=== PATIENT | male | born 1940 | race Caucasian/White ===

== ENCOUNTER 2021-04-13 20:06 | Emergency (ER) | payer MEDICARE, SELFPAY ==
[2021-04-13 20:14] VITALS: BP 170/88; PULSE 102; RESP 24; TEMP 36.6; O2SAT 87
[2021-04-13] MEDS: IPRATROPIUM 0.5 MG/ALBUTEROL SULFATE 2.5 MG AMPUL.NEB 3 ML INHALATION (20:23)
[2021-04-13 20:26] VITALS: PULSE 104; RESP 18; O2SAT 99
[2021-04-13] MEDS: methylPREDNISolone SOD SUCC 125 MG VIAL IM (20:30)
--- NOTE | 2021-04-13 20:30 | ED.SOB ---
HPI - SOB/Dyspnea General Chief Complaint: Upper Respiratory Infection Stated Complaint: trouble breathing Time Seen by Provider: 04/13/21 20:30 Source: patient Mode of arrival: ambulatory Limitations: no limitations History of Present Illness HPI Narrative: Patient come in after locking himself out of his house. He has stated he has COPD, and has been short of breath because he cannot use his nebulizer, since he is locked out of his house. Shortness if breath has been mild, and he thinks he just needs his nebulizer, which he now has no access to. He has had no chest pain, no fever, no cough, no other symptoms. He states he just needs his nebulizer, since he has been smoking since sixth grade. Shortness of breath has developed gradually today, as he has been restricted from using his nebulizer. He has been in the car all day running the air conditioner, because he cannot get inside his home. He states he has been hot, and that is making him a little short of breath. Nothing much helped this, including the air conditioner in his car. No other signs, or symptoms noted. MD elicited complaint: shortness of breath Pertinent past history: COPD Onset (ago): hour(s) Context: other (outside home all day, not able to get in to use his nebulizer) Timing: constant Severity: moderate Exacerbating factors: movement and smoke Relieving factors: rest Known history of: COPD Associated symptoms: denies other symptoms Treatment prior to arrival: none Related Data Home Medications Medication Instructions Recorded Confirmed albuterol sulfate 90 mcg/actuation 1 puff INHALATION Q4H PRN 10/04/19 04/13/21 aerosol inhaler budesonide 0.5 mg/2 mL suspension 0.5 mg INHALATION BID ml 10/04/19 04/13/21 for nebulization aspirin [Aspirin Childrens] 81 mg PO DAILY 04/13/21 04/13/21 Allergies Allergy/AdvReac Type Severity Reaction Status Date / Time No Known Allergies Allergy Verified 02/13/21 14:36 Review of Systems Constitutional: Constitutional: Reports no additional constitutional complaints Eyes: Eyes: Reports no additional eye complaints ENT: Reports system reviewed and no additional complaints, except as documented Cardiovascular: Cardiovascular: Reports no additional cardiovascular complaints Respiratory: Respiratory: Reports no additional respiratory complaints Gastrointestinal: Gastrointestinal: Reports no additional gastrointestinal complaints Genitourinary: Genitourinary: Reports no additional male genitourinary complaints Musculoskeletal: Musculoskeletal: Reports no additional musculoskeletal complaints Integumentary/Breasts: Skin/Breast: Reports system reviewed and no additional complaints, except as docu Neurologic: Reports system reviewed and no additional complaints, except as documented Psychiatric: Psychiatric: Reports no additional psychiatric complaints Endocrine: Endocrine: Reports no additional endocrine complaints Hematologic/Lymphatic: Hematologic/Lymphatic: Reports no additional hematologic/lymphatic complaints Allergic/Immunologic: Allergic/Immunologic: Reports no additional allergic/immunologic complaints [facility] Past Medical History Medical History COPD with asthma Smoker Surgical History Surgical History (Updated 04/13/21 @ 21:37 by Jad Tavarez MD) No significant past surgical history Family History Family History (Updated 04/13/21 @ 20:33 by Jad Tavarez MD) Grandparent No problems noted. Other Family history non-contributory Social History Social History Smoking status: Current every day smoker Tobacco type: cigarettes Smoking end date: 09/29/05 Alcohol intake: never Exam Const: General: no acute distress and alert Orientation/consciousness: patient oriented x3 HENMT: Head: normal to inspection Ears: external ears normal General nose exam: Normal external nose present Mouth: Yes Normal or
[2021-04-13 20:31] VITALS: PULSE 95; RESP 18; O2SAT 100
--- NOTE | 2021-04-13 20:46 | PC.NURSE ---
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
[2021-04-13 20:51] VITALS: BP 170/68; PULSE 99; RESP 20; TEMP 36.3; O2SAT 95
== END 2021-04-13 20:54 | disposition home or self-care (01) ==
PROVIDERS: Emergency Provider Emergency Medicine
DX: J44.9 Chronic obstructive pulmonary disease, unspecified (principal); F17.200 Nicotine dependence, unspecified, uncomplicated
CPT/HCPCS: 94640; 96372; 99283; J2930

== ENCOUNTER 2021-08-29 16:10 | Inpatient (IN) | payer MEDICARE, SELFPAY ==
[2021-08-29] VITALS (8 sets, daily range): BP systolic 112–134; BP diastolic 72–109; PULSE 87–116; RESP 16–24; TEMP 36.2–36.7; O2SAT 94–100; BMI 16.7
--- NOTE | ~2021-08-29 | CT_ITS ---
EXAMINATION:CT diagnostic chest wo con DATE: 08/29/2021 18:39 INDICATION: Shortness of breath. TECHNIQUE: Computed tomography (CT) of the chest was performed without intravenous contrast. Automate d exposure control and iterative reconstruction technique were employed. The dose-length product (DLP ) was 153.48 mGy-cm. COMPARISON: Chest single view 08/29/2021 FINDINGS: There is severe emphysema. There is mild atelectasis bilaterally. There are airspace opacit ies in superior segment right lower lobe. There are airspace opacities with volume loss in peripheral left upper lobe. A calcified left lung nodule is consistent with old granulomatous disease. There ar e centrilobular nodules in superior segment left lower lobe. There are airspace and groundglass opaci ties in anterior segment left upper lobe. No pleural effusion. The heart size is normal. No pericardi al effusion. There are calcifications of aortic valve. No pericardial effusion. Calcifications in the spleen are consistent with old granulomatous disease. There is mild thoracic spondylosis. IMPRESSION: 1. Multifocal lung disease, likely infection. 2. Severe emphysema. Reviewed, dictated and finalized at location A. TELLER
--- NOTE | ~2021-08-29 | XR_ITS ---
EXAMINATION: XR chest 1V portable DATE: 08/29/2021 17:36 INDICATION: Cough. Dyspnea. TECHNIQUE: A single frontal view of the chest was obtained. COMPARISON: Chest 2 views 02/05/2018 FINDINGS: The lungs are hyperexpanded with lucencies, consistent with emphysema. There are airspace o pacities at left lung apex. A calcified left lung nodule is consistent with old granulomatous disease . No pleural effusion or pneumothorax. The heart size is normal. IMPRESSION: 1. New airspace opacities at left lung apex, consistent with pneumonia versus scarring versus maligna ncy. Chest CT without contrast is recommended. 2. Emphysema. Reviewed, dictated and finalized at location A. TION MECHANIC IMPRESSION: 1. New airspace opacities at left lung apex, consistent with pneumonia versus s carring versus malignancy. Chest CT without contrast is recommended. 2. Emphysema.
--- NOTE | 2021-08-29 16:48 | ED.SOB ---
HPI - SOB/Dyspnea General Chief Complaint: Shortness of Breath/Dyspnea Stated Complaint: trouble breathing Time Seen by Provider: 08/29/21 16:52 Source: patient Mode of arrival: ambulatory Limitations: no limitations History of Present Illness HPI Narrative: 80-year-old man who was a long history of smoking, COPD, and asthma comes in today complaining of shortness of breath and productive cough. Patient states he usually can get the sputum out of his chest without difficulty however for the last few days his breathing has gotten worse and he is unable to cough up any phlegm. He denies any hemoptysis, fever, chest pain, nausea, vomiting, diarrhea or sick contacts. He lives by himself. MD elicited complaint: shortness of breath and cough Pertinent past history: COPD and asthma Onset (ago): day(s) Timing: constant and progressively worsening Severity: moderate Exacerbating factors: exertion and coughing Relieving factors: nothing Known history of: COPD and asthma Associated symptoms: cough and sputum production Treatment prior to arrival: none Related Data Home oxygen amount: none Home Medications Medication Instructions Recorded Confirmed albuterol sulfate 90 mcg/actuation 1 puff INHALATION Q4H PRN 10/04/19 08/29/21 aerosol inhaler budesonide 0.5 mg/2 mL suspension 0.5 mg INHALATION BID ml 10/04/19 08/29/21 for nebulization aspirin [Aspirin Childrens] 81 mg PO DAILY 04/13/21 08/29/21 Allergies Allergy/AdvReac Type Severity Reaction Status Date / Time No Known Allergies Allergy Verified 02/13/21 14:36 Review of Systems Review of Systems: All systems reviewed & are unremarkable except as noted in HPI and below Constitutional: Constitutional: Denies chills, Reports fatigue, Denies fever(s) and Denies weakness Eyes: Eyes: Denies change in vision and Denies photophobia ENT: Denies nasal congestion and Denies sore throat Cardiovascular: Cardiovascular: Denies chest pain and Denies radiating jaw, neck or arm pain Comments: Dry mouth Respiratory: Respiratory: Reports chest congestion, Reports cough, Reports dyspnea and Reports wheezing Gastrointestinal: Gastrointestinal: Denies abdominal pain, Denies diarrhea, Denies nausea and Denies vomiting Genitourinary: Genitourinary: Denies hematuria, Denies dysuria and Denies urinary frequency Musculoskeletal: Musculoskeletal: Denies back pain, Denies arthralgias and Denies joint swelling Integumentary/Breasts: Skin/Breast: Denies pruritus, Denies erythema and Denies rash Neurologic: Denies vertigo, Denies dizziness, Denies syncope, Denies focal weakness and Denies weakness Hematologic/Lymphatic: Hematologic/Lymphatic: Denies easy bleeding and Denies easy bruising Allergic/Immunologic: Allergic/Immunologic: Denies lip swelling and Denies throat swelling PMF Past Medical History 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 Other Family history non-contributory Social History Social History Smoking status: Current every day smoker Tobacco type: cigarettes Smoking end date: 09/29/05 Alcohol intake: never Exam Const: General: no acute distress, alert and ill appearing chronically Nutritional Appearance: thin Orientation/consciousness: patient oriented x3 HENMT: Head: normal to inspection Ears: external ears normal, TM's normal bilaterally and EAC's normal Face and sinus: normal facial exam Mouth: Yes dry mucous membranes Throat: posterior oropharynx normal Eyes: Conjunctivae: conjunctivae normal Pupils: Equal, round and reactive pupils present EOM: EOMs intact bilaterally R
--- NOTE | 2021-08-29 17:01 | ECG_ITS ---
Measurements Intervals [place] Rate: 99 P: 88 ND: 141 QRS: 101 QRSD: 117 T: 83 QT: 343 QTc: 441 Interpretive Statements SINUS RHYTHM FREQUENT ATRIAL PREMATURE COMPLEXES INCOMPLETE RIGHT BUNDLE BRANCH BLOCK BORDERLINE T WAVE ABNORMALITY- HIGH LATERAL LEADS BASELINE ARTIFACT- I, II, AVR, AVL, AVF, V1-V4 ABNORMAL ECG Electronically Signed On 08-29-2021 20:19:44 ADMINISTRATIVE SECRETARY by Steven Bautista D.O.
[2021-08-29 17:23] LABS: Influenza A QL RT-PCR Negative (Negative); Influenza B QL RT-PCR Negative (Negative); SARS-CoV-2 RNA PCR Negative (Negative)
[2021-08-29 17:47] LABS: Base Excess ABG 1.4 mmol/L (0-2); HCO3 ABG 25.2 mmol/L (23-29); Oxygen Content ABG 16.8 %vol (16.0-22.0); Oxygen Saturation ABG 94.7 % (95-97); Oxyhemoglobin 88.9 % (94-100); PCO2 ABG 36.9 mmHg (35-45); PO2 ABG 72.6 mmHg (75-85); Total Hemoglobin 13.4 g/dL (12.0-18.0); pH ABG 7.45 (7.35-7.45)
[2021-08-29 17:49] LABS: Hematocrit 36.7 % (37.0-46.0); Mean Corpuscular HGB Conc 35.4 g/dL (32.0-36.0); Mean Corpuscular Hemoglobin 39.3 pg (27.0-31.0); Mean Corpuscular Volume 110.9 fL (78.0-102.0); Mean Platelet Volume 10.6 fl (8.7-11.0); Platelet Count Result 219 K/mm3 (150-420); Red Blood Count 3.31 M/mm3 (4.70-6.10); Red Cell Distribution Width 18.8 % (11.6-14.4)
[2021-08-29 17:52] LABS: Device ROOM AIR; Modified Allen's Test Pass; Site Drawn LEFT RADIAL
--- NOTE | 2021-08-29 17:54 | PC.NURSE ---
Lab called with WBC of 26,000. Dr. Mccartney notified.
[2021-08-29 18:10] LABS: Lactic Acid Reflex 1.7 mmol/L (0.4-2.0); White Blood Count 26.2 K/mm3 (4.8-10.8)
[2021-08-29 18:15] LABS: Alanine Aminotransferase 22 U/L (16-63); Albumin Level 3.3 g/dL (3.4-5.0); Alkaline Phosphatase 72 U/L (46-116); Anion Gap 5 mmol/L (8-16); Aspartate Amino Transferase 15 U/L (15-37); Blood Urea Nitrogen 27 mg/dL (7-18); Carbon Dioxide 31 mmol/L (21-32); Chloride 106 mmol/L (98-108); Estimated CRCL calculation 31 ml/min; Estimated Glomerular Filt Rate 52; Glucose 102 mg/dL (70-99); Magnesium 2.3 mg/dL (1.8-2.4); NT Pro B Type Natriuretic Pept 625 pg/mL (0-450); Osmolality Calculated 299 mOsm/kg (285-295); Sodium 142 mmol/L (136-145); Total Protein 6.9 g/dL (6.4-8.2)
[2021-08-29 18:45] LABS: Band Neutrophils Percent 0 % (0-6); Basophils Percent Manual 0 % (0-1); Eosinophils Percent Manual 0 % (1-6); Lymphocytes Absolute Manual 0.26 K/mm3 (1.1-4.5); Lymphocytes Percent Manual 1 % (18-44); Monocytes Absolute Manual 0.78 K/mm3 (0.1-0.90); Monocytes Percent Manual 3 % (3-9); Neutrophils Absolute Manual 25.15 K/mm3 (1.3-6.7); Neutrophils Percent Manual 96 % (46-73); Platelet Estimate Adequate (Adequate)
[2021-08-29] MEDS: IPRATROPIUM 0.5 MG/ALBUTEROL SULFATE 2.5 MG AMPUL.NEB 3 ML INHALATION (19:44)
[2021-08-29] MEDS: SODIUM CHLORIDE 0.9% IV 500 ML 999 ML IV CONT (19:47)
[2021-08-29 19:58] LABS: Add Urine Microscopic? YES; Appearance Urine Clear (Clear); Bilirubin Urine Negative (Negative); Blood Urine 2+ (Negative); Color Urine Yellow (Yellow); Glucose Urine UA Negative (Negative); Ketones Urine Negative (Negative); Leukocyte Esterase Ur Negative LEU/UL (Negative); Nitrate Urine Negative (Negative); Protein Urine Trace (Negative); Specific Grav Ur >= 1.030 (1.010-1.020); pH Urine 5.5 (5.0-8.0)
[2021-08-29] MEDS: methylPREDNISolone SOD SUCC 125 MG VIAL 80 MG IV PUSH (20:02)
[2021-08-29 20:03] LABS: Squamous Epithelial Cell Urine None seen /hpf (Few); WBC Urine 0-3 /hpf (0-3)
[2021-08-29 20:04] LABS: Bacteria Urine Trace /hpf; Mucus Urine Noted /lpf
[2021-08-29] MEDS: DEXTROSE 5%/0.9% SOD CHL 1,000 ML 100 ML IV CONT (21:23)
--- NOTE | 2021-08-29 22:52 | ADMGEN ---
This patient, Kyle Gonzalez, was admitted to 2nd Floor Room 204-2. Patient/family oriented to hospital policies and general routines including ID bracelet, bed and alarms, visiting hours, pain management, procedures, bathroom and other care routines, personal items, smoking policy, room service/diet, and visiting hours. pt has belongings in room, pants, shirt, socks, shoes, phone Information on how to activate the Rapid Response Team has been discussed. Patient/Family are encouraged to report perceived risks to care and to ask questions if they do not understand what they are told or what they should do.
[2021-08-30] VITALS (13 sets, daily range): BP systolic 116–121; BP diastolic 68–77; PULSE 67–94; RESP 20–26; TEMP 36.2–36.7; O2SAT 92–100
[2021-08-30 05:14] LABS: Basophils Absolute Auto 0.04 K/mm3 (0.00-0.10); Basophils Percent Auto 0.2 % (0.0-1.0); Hematocrit 36.3 % (37.0-46.0); Hemoglobin 12.2 g/dL (12.4-15.3); Immature Granulocyte Absolute 0.15 K/mm3 (0.00-0.00); Immature Granulocyte Percent A 0.8 % (0.0-0.0); Lymphocytes Absolute Auto 0.44 K/mm3 (1.10-4.50); Lymphocytes Percent Auto 2.3 % (18.0-42.0); Mean Corpuscular HGB Conc 33.6 g/dL (32.0-36.0); Mean Corpuscular Hemoglobin 38.9 pg (27.0-31.0); Mean Corpuscular Volume 115.6 fL (78.0-102.0); Mean Platelet Volume 10.9 fl (8.7-11.0); Monocytes Absolute Auto 0.22 K/mm3 (0.10-0.90); Monocytes Percent Auto 1.1 % (2.0-11.0); Neutrophils Absolute Auto 18.5 K/mm3 (1.7-7.2); Neutrophils Percent Auto 95.6 % (50.0-70.0); Platelet Count Result 221 K/mm3 (150-420); Red Blood Count 3.14 M/mm3 (4.70-6.10); Red Cell Distribution Width 18.9 % (11.6-14.4); White Blood Count 19.3 K/mm3 (4.8-10.8)
[2021-08-30 05:35] LABS: Alanine Aminotransferase 20 U/L (16-63); Albumin Level 2.8 g/dL (3.4-5.0); Alkaline Phosphatase 65 U/L (46-116); Anion Gap 7 mmol/L (8-16); Aspartate Amino Transferase 15 U/L (15-37); Bilirubin,Total 0.5 mg/dL (0.00-1.00); Blood Urea Nitrogen 23 mg/dL (7-18); Calcium 8.7 mg/dL (8.5-10.1); Carbon Dioxide 27 mmol/L (21-32); Chloride 106 mmol/L (98-108); Estimated CRCL calculation 34 ml/min; Estimated Glomerular Filt Rate > 60; Glucose 159 mg/dL (70-99); Osmolality Calculated 296 mOsm/kg (285-295); Potassium 4.3 mmol/L (3.5-5.1); Sodium 140 mmol/L (136-145); Total Protein 6.4 g/dL (6.4-8.2)
[2021-08-30] MEDS: IPRATROPIUM 0.5 MG/ALBUTEROL SULFATE 2.5 MG AMPUL.NEB 3 ML INHALATION ×3 (05:35→18:19)
[2021-08-30] MEDS: BUDESONIDE RESPULE NEB 0.5 MG/2 ML AMP INHALATION ×2 (05:51→18:26)
[2021-08-30] MEDS: IPRATROPIUM 0.5 MG/ALBUTEROL SULFATE 2.5 MG AMPUL.NEB 3 ML (05:51)
[2021-08-30] MEDS: DEXTROSE 5%/0.9% SOD CHL 1,000 ML 100 ML IV CONT (07:43)
[2021-08-30] MEDS: methylPREDNISolone SOD SUCC 40 MG VIAL IV PUSH ×2 (08:45→21:27)
[2021-08-30] MEDS: ASPIRIN 81 MG CHEWABLE TABLET PO (08:45)
[2021-08-30] MEDS: NICOTINE (*PBKC) 21 MG PATCH 1 PATCH TRANSDERM (08:45)
--- NOTE | 2021-08-30 10:16 | PM.IMHP ---
H&P: HPI History of Present Illness Date/Time: 08/30/21 10:16 this is a 80-year-old male who presented to care with complaints of increased shortness. Patient past medical history of COPD, asthma, nicotine dependence, CVA with residual and glaucoma. Patient notes that he has chronic shortness of breath and he is currently a smoker he smokes cigars. Patient notes for the last week his shortness of breath has worsened he is coughing up yellowish sputum. According to patient every morning he has to smoke a cigar to make him choke the sputum in his chest and throat. Patient does have a nebulizer at home he notes that he has been using his nebulizer and he does have solution for his nebulizer. Patient does not have any inhalers will discharge patient home with inhalers. He is refusing oxygen because he currently smokes he knows he cannot walk to his mailbox due to shortness of breath. Will complete a home O2 eval and give the patient option of oxygen use once again. Patient chest x-ray and CT did indicate possible pneumonia, WBCs 26.2, hemoglobin 13.0, hematocrit 36.7, platelets 219 ABG no significant reporting, sodium 142, potassium 5.0, BUN 27, creatinine 1.02, glucose 59, lactic acid 1.7 liver function test within normal limit BNP 625 UA with trace of protein and bacteria and RBCs Covid negative EKG sinus rhythm with a heart rate of 99. Patient will remain in hospital for an additional day for treatment of pneumonia with antibiotics with inhalers and nebulizer treatment. Patient continues to complain of worsening shortness of breath with sputum production Chief Complaint: Shortness of breath Review of Systems Review of Systems: A 14 organ system Review of Systems was performed and pertinent positives included in the HPI, otherwise remaining ROS is negative. 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 Other Family history non-contributory Social History Social History Smoking status: Current every day smoker Tobacco type: cigars Second hand tobacco smoke exposure: Yes Smoking end date: 09/29/05 Alcohol intake: never Substance use: former Substance use type: does not use Spiritual care concerns: No Meds Home Medications and Allergies Home Medications Medication Instructions Recorded Confirmed Type albuterol sulfate 90 mcg/actuation 1 puff INHALATION Q4H PRN 10/04/19 08/29/21 History aerosol inhaler budesonide 0.5 mg/2 mL suspension 0.5 mg INHALATION BID ml 10/04/19 08/29/21 History for nebulization aspirin [Aspirin Childrens] 81 mg PO DAILY 04/13/21 08/29/21 History Allergies Allergy/AdvReac Type Severity Reaction Status Date / Time No Known Allergies Allergy Verified 02/13/21 14:36 Vital Signs Vital Signs - 24 hr 08/29/21 17:02 08/29/21 17:12 08/29/21 19:46 Temperature 98.1 F Pulse Rate 107 H 100 116 H Respiratory Rate 22 H 24 H Blood Pressure 134/78 Pulse Oximetry 99 95 08/29/21 19:49 08/29/21 22:06 08/29/21 22:48 Temperature 97.3 F L Pulse Rate 94 97 87 Respiratory Rate 23 H 17 22 H Blood Pressure 129/109 H 122/86 Pulse Oximetry 100 96 95 08/29/21 23:55 08/29/21 23:57 08/30/21 03:03 Temperature 97.2 F L 97.2 F L Pulse Rate 88 87 94 Respiratory Rate 16 26 H Blood Pressure 112/72 116/77 Pulse Oximetry 94 94 08/30/21 05:53 08/30/21 06:00 08/30/21 06:01 Temperature Pulse Rate 84 67 67 Respiratory Rate 22 H 20 20 Blood Pressure Pulse Oximetry 92 98 98 08/30/21 06:15 08/30/21 08:00 Temperature 97.1 F L Pulse Rate 76 85 Respiratory Rat
[2021-08-30] MEDS: BENZONATATE 100 MG CAPSULE 200 MG PO ×2 (12:10→16:59)
[2021-08-30] MEDS: ALBUTEROL SULFATE (*SP) INHALER 2 PUFF INHALATION (12:57)
[2021-08-30] MEDS: ACETAMINOPHEN 325 MG TABLET 650 MG PO (14:10)
--- NOTE | 2021-08-30 19:00 | PC.NURSE ---
Completed change of shift report. Patient is resting comfortably in his recliner. Patient ready to move to his bed. Patient stated he was not in any pain, and did not need anything at this point.
--- NOTE | 2021-08-30 22:00 | PC.NURSE ---
Completed patient rounding. Patient is sitting on the side of his bed. Stated he is short of breath, and sitting upright on the side of the bed is helping him breath. Patient began to feel better, and was able to return to his bed, resting comfortably.
[2021-08-31] VITALS (18 sets, daily range): BP systolic 116–138; BP diastolic 71–84; PULSE 64–97; RESP 16–21; TEMP 36.3–36.6; O2SAT 84–100
[2021-08-31] MEDS: IPRATROPIUM 0.5 MG/ALBUTEROL SULFATE 2.5 MG AMPUL.NEB 3 ML INHALATION ×4 (00:31→18:38)
--- NOTE | 2021-08-31 02:00 | PC.NURSE ---
Completed patient rounding. Patient is sleeping comfortably in his bed, with no signs of pain or discomfort.
[2021-08-31 05:30] LABS: Hematocrit 32.4 % (37.0-46.0); Mean Corpuscular Hemoglobin 38.6 pg (27.0-31.0); Mean Corpuscular Volume 113.7 fL (78.0-102.0); Mean Platelet Volume 10.2 fl (8.7-11.0); Platelet Count Result 219 K/mm3 (150-420); Red Blood Count 2.85 M/mm3 (4.70-6.10); Red Cell Distribution Width 18.5 % (11.6-14.4)
[2021-08-31] MEDS: BUDESONIDE RESPULE NEB 0.5 MG/2 ML AMP INHALATION ×2 (05:37→18:39)
[2021-08-31 05:55] LABS: Alanine Aminotransferase 30 U/L (16-63); Albumin Level 2.7 g/dL (3.4-5.0); Alkaline Phosphatase 62 U/L (46-116); Anion Gap 10 mmol/L (8-16); Aspartate Amino Transferase 25 U/L (15-37); Bilirubin,Total 0.4 mg/dL (0.00-1.00); Blood Urea Nitrogen 30 mg/dL (7-18); Calcium 8.3 mg/dL (8.5-10.1); Carbon Dioxide 26 mmol/L (21-32); Chloride 106 mmol/L (98-108); Estimated CRCL calculation 36 ml/min; Estimated Glomerular Filt Rate > 60; Glucose 122 mg/dL (70-99); Osmolality Calculated 301 mOsm/kg (285-295); Potassium 4.4 mmol/L (3.5-5.1); Sodium 142 mmol/L (136-145); Total Protein 5.5 g/dL (6.4-8.2)
[2021-08-31] MEDS: BENZONATATE 100 MG CAPSULE 200 MG PO ×3 (08:45→16:30)
[2021-08-31] MEDS: methylPREDNISolone SOD SUCC 40 MG VIAL IV PUSH ×2 (08:45→20:39)
[2021-08-31] MEDS: ASPIRIN 81 MG CHEWABLE TABLET PO (08:45)
[2021-08-31] MEDS: NICOTINE (*PBKC) 21 MG PATCH 1 PATCH TRANSDERM (08:46)
--- NOTE | 2021-08-31 11:07 | HOMEO2EVAL ---
Evaluation was performed at [facility] Home Oxygen Evaluation RC: Home Oxygen (O2) Evaluation Start: 08/31/21 10:16 Freq: ONCE Status: Active Protocol: RPE Activity Type Activity Date Activity User E-Sign Co-Sign Detail Recorded Client Recorded Date Recorded By Document 08/31/21 10:45 SJB [id number] 08/31/21 11:06 SJB Document 08/31/21 10:46 SJB [id number] 08/31/21 11:06 SJB Document 08/31/21 10:51 SJB [id number] 08/31/21 11:06 SJB Document 08/31/21 10:56 SJB [id number] 08/31/21 11:06 SJB 08/31/21 08/31/21 08/31/21 10:45 10:46 10:51 Home O2 Evaluation Test Phase Resting Exercise Exercise Oxygen Delivery Room Air Room Air Nasal Cannula Oxygen Flow Rate (L/min) 1 Pulse Oximetry (90-100 %) 94 84 L 87 L Pulse Rate (60-100 beats/min) 92 84 76 Activity Tolerance Fair Fair Rate of Perceived Exertion (PE) 12 13 Somewhat Hard Ambulation Distance (feet) 30 75 Home Oxygen Evaluation Comments SOB and Started patient Increased wheezing on on 1 lpm. oxygen to 2 lpm room air, . sitting on side of bed. Treatment Charges O2 Evaluation - Outpatient 08/31/21 10:56 Home O2 Evaluation Test Phase Exercise Oxygen Delivery Nasal Cannula Oxygen Flow Rate (L/min) 2 Pulse Oximetry (90-100 %) 93 Pulse Rate (60-100 beats/min) 97 Activity Tolerance Fair Rate of Perceived Exertion (PE) 13 Somewhat Hard Ambulation Distance (feet) 75 Home Oxygen Evaluation Comments Finsihed walk on 2 lpm, pushing wheelchair, Sp02s remained 93% and above. Educated on PLB . Treatment Charges
--- NOTE | 2021-08-31 11:30 | PC.NURSE ---
Patient discharged from observation status to inpatient status.
--- NOTE | 2021-08-31 12:39 | P.PN_ITS ---
Progress Note: A&P Assessment and Plan (1) Asthma exacerbation in COPD: Code(s): J44.1 - Chronic obstructive pulmonary disease with (acute) exacerbation; J45.901 - Unspecified asthma with (acute) exacerbation <AMOL Guaman - Last Filed: 08/31/21 12:42> Status: Acute <Chijarred RoqueLACHELLE OrnelasC - Last Filed: 08/31/21 12:42> Assessment and Plan: * Chest x-ray indicates severe emphysema * Worsening due to pneumonia * Continue inhalers along with steroids and Rocephin * Patient requires 2 L nasal cannula with activity <CHENTE Guaman-C - Last Filed: 08/31/21 12:42> (2) Left upper lobe pneumonia: Qualifiers: Pneumonia type: due to unspecified organism Qualified Code(s): J18.9 - Pneumonia, unspecified organism <AMOL Guaman - Last Filed: 08/31/21 12:42> Code(s): J18.9 - Pneumonia, unspecified organism <LACHELLE GuamanC - Last Filed: 08/31/21 12:42> Status: Acute <AMOL Guaman - Last Filed: 08/31/21 12:42> Assessment and Plan: * Chest x-ray indicates pneumonia * WBCs26.2>19.3>18.0 * Blood culture * Continue Rocephin and azithromycin * Continue Tessalon Perles with guaifenesin and inhalers with Solu-Medrol <AMOL Guaman - Last Filed: 08/31/21 12:42> (3) Acute renal failure: Qualifiers: Acute renal failure type: unspecified Qualified Code(s): N17.9 - Acute kidney failure, unspecified <AMOL Guaman - Last Filed: 08/31/21 12:42> Code(s): N17.9 - Acute kidney failure, unspecified <LACHELLE GuamanC - Last Filed: 08/31/21 12:42> Status: Acute <AMOL Guaman - Last Filed: 08/31/21 12:42> Assessment and Plan: * Resolved * Creatinine1.32>1.05>wnl * Avoid nephrotoxic agent * Renal dose medication given <AMOL Guaman - Last Filed: 08/31/21 12:42> (4) History of CVA with residual deficit: Code(s): I69.30 - Unspecified sequelae of cerebral infarction <Graeme Shay AMOL - Last Filed: 08/31/21 12:42> Status: Acute <AMOL Guaman - Last Filed: 08/31/21 12:42> Assessment and Plan: * Follow-up with primary care physician <AMOL Guaman - Last Filed: 08/31/21 12:42> (5) Smoker: Code(s): F17.200 - Nicotine dependence, unspecified, uncomplicated <Graeme Shay AMOL - Last Filed: 08/31/21 12:42> Status: Acute <AMOL Guaman - Last Filed: 08/31/21 12:42> Assessment and Plan: * Educated on cessation * Nicotine patch placed <AMOL Guaman - Last Filed: 08/31/21 12:42> Additional Plan 80-year-old male, smoker with a history of COPD presented with left upper lobe pneumonia and COPD exasperation. On physical examination the but patient continues to have severe bronchospasm. Continue Solu-Medrol, bronchodilators along with Rocephin and Zithromax. <Alexis Jo MD - Last Filed: 08/31/21 14:48> Subjective Date/time seen: 08/31/21 12:39 patient WBCs trending down he still continues to have shortness of breath mucus production. Plan to keep patient for an additional day of IV antibiotic therapy due to his noncompliance. Home O2 evaluation complete outpatient with determined that he needs 2 L with activities. Patient educated on smoking cessation in the dangers of using oxygen while smoking patient has agreed to attempt smoking cessation. Only complaint patient has is he was unable to sleep last night due to nursing staff coming in taking vitals I explained to the patient t
--- NOTE | 2021-08-31 12:39 | WPDPN ---
Progress Note: A&P Assessment and Plan (1) Asthma exacerbation in COPD: Code(s): J44.1 - Chronic obstructive pulmonary disease with (acute) exacerbation; J45.901 - Unspecified asthma with (acute) exacerbation <Graeme RoqueAMOL Ornelas - Last Filed: 08/31/21 12:42> Status: Acute <Chijarred RoqueLACHELLE OrnelasC - Last Filed: 08/31/21 12:42> Assessment and Plan: Chest x-ray indicates severe emphysema Worsening due to pneumonia Continue inhalers along with steroids and Rocephin Patient requires 2 L nasal cannula with activity <ChiCHENTE Flores-C - Last Filed: 08/31/21 12:42> (2) Left upper lobe pneumonia: Qualifiers: Pneumonia type: due to unspecified organism Qualified Code(s): J18.9 - Pneumonia, unspecified organism <LACHELLE GuamanC - Last Filed: 08/31/21 12:42> Code(s): J18.9 - Pneumonia, unspecified organism <LACHELLE GuamanC - Last Filed: 08/31/21 12:42> Status: Acute <Graeme RoqueLACHELLE OrnelasC - Last Filed: 08/31/21 12:42> Assessment and Plan: Chest x-ray indicates pneumonia WBCs26.2>19.3>18.0 Blood culture Continue Rocephin and azithromycin Continue Tessalon Perles with guaifenesin and inhalers with Solu-Medrol <AMOL Guaman - Last Filed: 08/31/21 12:42> (3) Acute renal failure: Qualifiers: Acute renal failure type: unspecified Qualified Code(s): N17.9 - Acute kidney failure, unspecified <CHENTE Guaman-C - Last Filed: 08/31/21 12:42> Code(s): N17.9 - Acute kidney failure, unspecified <CHENTE Guaman-C - Last Filed: 08/31/21 12:42> Status: Acute <AMOL Guaman - Last Filed: 08/31/21 12:42> Assessment and Plan: Resolved Creatinine1.32>1.05>wnl Avoid nephrotoxic agent Renal dose medication given <Graeme NevarezAMOL Ornelas - Last Filed: 08/31/21 12:42> (4) History of CVA with residual deficit: Code(s): I69.30 - Unspecified sequelae of cerebral infarction <Graeme NevarezAMOL Ornelas - Last Filed: 08/31/21 12:42> Status: Acute <Graeme ShayAMOL - Last Filed: 08/31/21 12:42> Assessment and Plan: Follow-up with primary care physician <Graeme NevarezAMOL Ornelas - Last Filed: 08/31/21 12:42> (5) Smoker: Code(s): F17.200 - Nicotine dependence, unspecified, uncomplicated <Graeme Valencia CHENTE ShayKristalRickey - Last Filed: 08/31/21 12:42> Status: Acute <Graeme NevarezAMOL Ornelas - Last Filed: 08/31/21 12:42> Assessment and Plan: Educated on cessation Nicotine patch placed <Graeme NevarezAMOL Ornelas - Last Filed: 08/31/21 12:42> Additional Plan 80-year-old male, smoker with a history of COPD presented with left upper lobe pneumonia and COPD exasperation. On physical examination the but patient continues to have severe bronchospasm. Continue Solu-Medrol, bronchodilators along with Rocephin and Zithromax. <Alexis Jo MD - Last Filed: 08/31/21 14:48> Subjective Date/time seen: 08/31/21 12:39 patient WBCs trending down he still continues to have shortness of breath mucus production. Plan to keep patient for an additional day of IV antibiotic therapy due to his noncompliance. Home O2 evaluation complete outpatient with determined that he needs 2 L with activities. Patient educated on smoking cessation in the dangers of using oxygen while smoking patient has agreed to attempt smoking cessation. Only complaint patient has is he was unable to sleep last night due to nursing staff coming in taking vitals I explained to the patient that they have to monitor him to ensure they his mental status is stable. Plan to discharge patient tomorrow. <AMOL Guaman - Last Filed: 08/31/21 12:42> Review of Systems Review of Systems: A 14 organ system Review of Systems was performed and pertinent positives included in the HPI, otherwise remaining ROS is
--- NOTE | 2021-08-31 19:13 | PC.NURSE ---
Pt introduction took place. Pt whiteboard updated. Call light within reach.
[2021-09-01] MEDS: IPRATROPIUM 0.5 MG/ALBUTEROL SULFATE 2.5 MG AMPUL.NEB 3 ML INHALATION (00:54)
[2021-09-01 00:55] VITALS: PULSE 96; RESP 22; O2SAT 94
[2021-09-01 00:58] VITALS: PULSE 85; RESP 20; O2SAT 94
--- NOTE | 2021-09-01 02:10 | PC.NURSE ---
Pt rounding completed. Pt is sleeping on his right side with the call light within reach.
[2021-09-01 05:22] LABS: Hematocrit 31.3 % (37.0-46.0); Hemoglobin 10.7 g/dL (12.4-15.3); Mean Corpuscular HGB Conc 34.2 g/dL (32.0-36.0); Mean Corpuscular Hemoglobin 38.9 pg (27.0-31.0); Mean Corpuscular Volume 113.8 fL (78.0-102.0); Mean Platelet Volume 10.2 fl (8.7-11.0); Platelet Count Result 245 K/mm3 (150-420); Red Blood Count 2.75 M/mm3 (4.70-6.10); Red Cell Distribution Width 18.1 % (11.6-14.4); White Blood Count 18.4 K/mm3 (4.8-10.8)
[2021-09-01 05:38] LABS: Alanine Aminotransferase 74 U/L (16-63); Albumin Level 2.7 g/dL (3.4-5.0); Alkaline Phosphatase 63 U/L (46-116); Anion Gap 8 mmol/L (8-16); Aspartate Amino Transferase 48 U/L (15-37); Bilirubin,Total 0.4 mg/dL (0.00-1.00); Blood Urea Nitrogen 25 mg/dL (7-18); Calcium 8.5 mg/dL (8.5-10.1); Carbon Dioxide 27 mmol/L (21-32); Chloride 107 mmol/L (98-108); Estimated CRCL calculation 35 ml/min; Estimated Glomerular Filt Rate > 60; Glucose 112 mg/dL (70-99); Osmolality Calculated 299 mOsm/kg (285-295); Potassium 4.7 mmol/L (3.5-5.1); Sodium 142 mmol/L (136-145); Total Protein 5.8 g/dL (6.4-8.2)
--- NOTE | 2021-09-01 07:59 | PM.DS ---
DS: Admitting Diagnosis Discharge Date 09/01/2021 Admitting Diagnosis COPD exacerbation DS: Discharge Diagnosis Discharge Diagnosis (1) Asthma exacerbation in COPD: Code(s): J44.1 - Chronic obstructive pulmonary disease with (acute) exacerbation; J45.901 - Unspecified asthma with (acute) exacerbation Status: Acute Assessment and Plan: Chest x-ray indicates severe emphysema Worsening due to pneumonia Continue inhalers along with steroids and Rocephin Patient requires 2 L nasal cannula with activity (2) Left upper lobe pneumonia: Qualifiers: Pneumonia type: due to unspecified organism Qualified Code(s): J18.9 - Pneumonia, unspecified organism Code(s): J18.9 - Pneumonia, unspecified organism Status: Acute Assessment and Plan: Chest x-ray indicates pneumonia WBCs26.2>19.3>18.0 patient WBCs remain elevated possibly secondary to steroid Blood culture Continue Rocephin and azithromycin Continue Tessalon Perles with guaifenesin and inhalers with Solu-Medrol (3) Acute renal failure: Qualifiers: Acute renal failure type: unspecified Qualified Code(s): N17.9 - Acute kidney failure, unspecified Code(s): N17.9 - Acute kidney failure, unspecified Status: Acute Assessment and Plan: Resolved Creatinine1.32>1.05>wnl Avoid nephrotoxic agent Renal dose medication given (4) History of CVA with residual deficit: Code(s): I69.30 - Unspecified sequelae of cerebral infarction Status: Acute Assessment and Plan: Follow-up with primary care physician (5) Smoker: Code(s): F17.200 - Nicotine dependence, unspecified, uncomplicated Status: Acute Assessment and Plan: Educated on cessation Nicotine patch placed DS: Summary Hospital Course Reason for hospitalization: COPD exacerbation Hospital Course: this is a 80-year-old male who presented to ED with complaints of increased shortness. Patient past medical history of COPD, asthma, nicotine dependence, CVA with residual and glaucoma. Patient notes that he has chronic shortness of breath and he is currently a smoker he smokes cigars. Patient notes for the last week his shortness of breath has worsened he is coughing up yellowish sputum. According to patient every morning he has to smoke a cigar to make him choke the sputum in his chest and throat. Patient does have a nebulizer at home he notes that he has been using his nebulizer and he does have solution for his nebulizer. Patient does not have any inhalers will discharge patient home with inhalers. Home to evaluation indicates the patient needs 2 L nasal cannula with activity. Patient has been educated on the importance of not using oxygen while smoking. Patient was discharged with nicotine patch, steroids, azithromycin, cefdinir, guaifenesin, Tessalon Perles and inhalers. The patient denies CP, palpitation, extremity numbness, lightheadedness, dizziness, constipation, diarrhea, chills, or fever. Time Spent with Patient Time attestation: Total time spent providing and/or coordinating discharge services: Exam Narrative: GENERAL: Frail elderly gentleman in no apparent distress. HEAD: normocephalic, atraumatic. EYES: PERRL. Sclera clear/white. Vision is grossly intact. EARS: External ears normal, auditory canals clear and without drainage, TMs normal without perforation. Hearing grossly intact. NOSE: External nose normal with no obvious nasal discharge, nares without redness, no rhinorrhea. THROAT: Mucous membranes moist, posterior pharynx clear. NECK: Neck supple, non-tender without lymphadenopathy, masses or thyromegaly. CARDIOVASCULAR: Regular rate and rhythm without murmurs, gallops, or rubs. RESPIRATORY: Wheezing with exhalation and inhalation throughout the lungs GASTROINTESTINAL: Abdomen soft, non-tender, nondistended. Bowel sounds are active. No hepato-splenomegaly, or palpable masses. No guarding. SKIN: warm,
[2021-09-01 08:00] VITALS: BP 101/70; PULSE 97; RESP 20; TEMP 36.4; O2SAT 100
[2021-09-01] MEDS: methylPREDNISolone SOD SUCC 40 MG VIAL IV PUSH (09:22)
[2021-09-01] MEDS: ASPIRIN 81 MG CHEWABLE TABLET PO (09:24)
[2021-09-01] MEDS: BENZONATATE 100 MG CAPSULE 200 MG PO (09:24)
[2021-09-01] MEDS: NICOTINE (*PBKC) 21 MG PATCH 1 PATCH TRANSDERM (09:33)
--- NOTE | 2021-09-01 11:55 | PC.NURSE ---
Patients friend Zeeshan manzano called per pt. request to see if Zeeshan could give pt. a ride home. Zeeshan states he can be here at 1245.
--- NOTE | 2021-09-01 12:29 | PC.NURSE ---
Attempted to review discharge instructions with patient. He began screaming about [employer] calling him and his ride calling. Several attempts were made to calm the patient, but he began screaming louder. WIRE MESH KNITTER and charge nurse were notified of patients actions. Attempts will be made to review discharge instructions with person giving pt the ride.
--- NOTE | 2021-09-01 13:20 | PC.NURSE ---
Discharge instructions reviewed with patients family member(Zeeshan) that is transporting him home. Family member states understanding. All belongings sent home with patient. Patient accompanied to front door via wheelchair by this nurse. Patient left via private vehicle with family member.
--- NOTE | 2021-09-04 11:05 | PC.NURSE ---
Pt states he received his discharge instructions but he doesn't understand them. Discharge instructions explained by health science writer. Pt states he hasn't picked up prescriptions and is refusing to use home O2 and is having the company pick it up today.
== END 2021-09-01 13:20 | disposition home or self-care (01) | DRG 190 ==
LOC: CHSED 19:35 → CHS2ND 21:43
PROVIDERS: Nurse Practitioner; Admitting Provider Emergency Medicine; Emergency Provider Emergency Medicine; PCP Internal Medicine; Visit Provider Emergency Medicine
DX: J44.1 Chronic obstructive pulmonary disease with (acute) exacerbation (principal); J18.9 Pneumonia, unspecified organism; J45.901 Unspecified asthma with (acute) exacerbation; N17.9 Acute kidney failure, unspecified; J44.0 Chronic obstructive pulmonary disease with (acute) lower respiratory infection; I69.30 Unspecified sequelae of cerebral infarction; F17.290 Nicotine dependence, other tobacco product, uncomplicated
CPT/HCPCS: 36415; 36600; 71045; 71250; 80053; 81001; 82805; 83605; 83735; 83880; 84484; 85025; 85027; 87040; 87502; 93005; 94618; 94640; 96361; 96365; 96366; 96367; 96375; 96376; 97161; 97530; 99285; A9270; C9803; G0378; J0456; J0696; J2920; J2930; J7040; J7042; U0003; U0005

== ENCOUNTER 2022-02-21 15:58 | Emergency (ER) | payer MEDICARE, SELFPAY ==
--- NOTE | ~2022-02-21 | CT_ITS ---
EXAMINATION: CT brain wo con DATE: 02/21/2022 16:59 INDICATION: Dizziness and generalized head and neck pain post ground-level fall TECHNIQUE: Computed tomography (CT) of the head was performed without intravenous contrast. Sagittal and coronal reconstructions were performed. Automated exposure control and iterative reconstruction t echnique were employed. The dose-length product was 605.33 mGy-cm. COMPARISON: head CT dated 04/11/2011 FINDINGS: No fracture. No acute intracranial hemorrhage, acute infarction or abnormal extra axial fluid collect ion. Old lacunar infarct at the left thalamus. There is moderate scattered white matter hypoattenuati on consistent with chronic small vessel ischemic disease. Symmetric prominence of the sulci and ventr icles consistent with moderate age-appropriate diffuse cerebral volume loss. No mass/mass effect. Cami nges of bilateral intraocular lens replacement. The orbits, paranasal sinuses and mastoid air cells a re normal. IMPRESSION: 1. No fracture or acute intracranial process. 2. Stable lacunar infarct at the right thalamus. 3. Age-related changes including moderate diffuse volume loss and moderate scattered white matter hyp oattenuation consistent with chronic small vessel ischemic disease. Reviewed, dictated and finalized at location B. IMPRESSION: 1. No fracture or acute intracranial process. 2. Stable lacunar infarct at the right thalamus. 3. Age-related changes including moderate diffuse volume loss and moderate scat tered white matter hypoattenuation consistent with chronic small vessel ischemi c disease.
--- NOTE | ~2022-02-21 | XR_ITS ---
XR humerus LT 02/21/2022 17:32 Indication: Left arm pain Procedure: 2 views left humerus Comparison: No prior studies for comparison. Findings: No fracture, subluxation or dislocation. There is chronic left apical pleural thickening/sc arring. There is a chronic calcified granulomas of the left upper thorax. Impression: 1: No acute fracture. Reviewed, dictated and finalized at location A. Impression: 1: No acute fracture.
--- NOTE | ~2022-02-21 | CT_ITS ---
EXAMINATION: CT lumbar spine wo con DATE: 02/21/2022 16:59 INDICATION: Low back pain post fall TECHNIQUE: Computed tomography (CT) of the lumbar spine was performed without intravenous contrast. A utomated exposure control and iterative reconstruction technique were employed. The dose-length produ ct was 481.82 mGy-cm. COMPARISON: None FINDINGS: Marked diffuse osteopenia. Chronic appearing mild anterior wedging at T12 and L1 with 20% anterior ve rtebral body height loss. Additional chronic compression fracture involving the anterior to mid super ior endplate of L4 with one third anterior to central vertebral body height loss. No acute fractures identified. Severe disc height loss at L5-S1. Remaining disc heights are relatively preserved. There is calcified atherosclerosis of the aorta and many of the other arteries. 3.5 cm cyst at the lower po le of the left kidney. Paravertebral soft tissues are otherwise unremarkable. The following disc leve ls are specifically discussed: T12-L1: The disc does not extend beyond the endplate margin. There is mild right and moderate left fa cet joint osteoarthritis. There is no neural foraminal stenosis. There is no central canal stenosis. L1-L2: Disc is mildly bulging. There is moderate bilateral facet joint osteoarthritis. There is mild bilateral neural foraminal stenosis. There is mild central canal stenosis. L2-L3: Disc is mildly bulging. There is moderate left and mild to moderate right facet joint osteoart hritis. There is mild bilateral neural foraminal stenosis. There is mild central canal stenosis. L3-L4: Disc is bulging. There is mild left and moderate right facet joint osteoarthritis. There is mi ld bilateral neural foraminal stenosis. There is mild central canal stenosis. L4-L5: Disc is bulging. There is moderate bilateral facet joint osteoarthritis. There is moderate lef t and mild to moderate right neural foraminal stenosis. There is mild central canal stenosis. L5-S1: Posterior disc osteophyte complex. There is moderate bilateral facet joint osteoarthritis. The re is moderate to severe bilateral neural foraminal stenosis. There is no central canal stenosis. IMPRESSION: 1. Chronic compression fractures at T12, L1 and L4. No evident acute osseous abnormality. 2. Severe lumbosacral and mild lumbar spondylosis. Reviewed, dictated and finalized at location B. IMPRESSION: 1. Chronic compression fractures at T12, L1 and L4. No evident acute osseous ab normality. 2. Severe lumbosacral and mild lumbar spondylosis.
[2022-02-21 16:11] VITALS: BP 150/94; PULSE 93; RESP 14; TEMP 36.6; O2SAT 98
[2022-02-21 16:30] VITALS: BP 154/92; PULSE 96; RESP 14; O2SAT 98
--- NOTE | 2022-02-21 16:38 | ECG_ITS ---
Measurements Intervals [place] Rate: 99 P: 92 GA: 140 QRS: 91 QRSD: 125 T: 74 QT: 355 QTc: 457 Interpretive Statements SINUS RHYTHM POSSIBLE RIGHT ATRIAL ENLARGEMENT RIGHT BUNDLE BRANCH BLOCK BASELINE ARTIFACT- I, AVR, AVL ABNORMAL ECG Electronically Signed On 02-21-2022 20:37:30 CDT by Steven Bautista D.O.
--- NOTE | 2022-02-21 17:18 | ED.FALL ---
HPI - Fall General Chief Complaint: Fall <Bryan Rodas MD - Last Filed: 02/21/22 20:20> Stated Complaint: back pain post fall, lac on bicep <Bryan Rodas MD - Last Filed: 02/21/22 20:20> Time Seen by Provider: 02/21/22 16:02 <Bryan Rodas MD - Last Filed: 02/21/22 20:20> History of Present Illness HPI Narrative: Patient is an 81-year-old male complaining of laceration of his left arm, mild head pain and lower back pain after he lost his balance due to feeling dizzy at home and had a ground-level fall prior to arrival. Patient states that he has a history of vertigo, and while walking with his cane he suddenly turned and felt dizzy and fell to the ground. Patient denies any loss of consciousness. Patient states that he was able to get up and ambulate after the fall. Patient denies any neck pain, chest pain, shortness of breath, abdominal pain, pelvic pain or any other extremity pain/injury. Patient states that he did not want to go to the hospital but his son made him. <Bryan Rodas MD - Last Filed: 02/21/22 20:20> Related Data Home Medications: Home Medications Medication Instructions Recorded Confirmed aspirin 81 mg chewable tablet 81 mg PO DAILY 04/13/21 08/29/21 (Aspirin Childrens) <Bryan Rodas MD - Last Filed: 02/21/22 20:20> Allergies/Adverse Reactions: Allergies Allergy/AdvReac Type Severity Reaction Status Date / Time No Known Allergies Allergy Verified 02/13/21 14:36 <Bryan Rodas MD - Last Filed: 02/21/22 20:20> Review of Systems Review of Systems: All systems reviewed & are unremarkable except as noted in HPI and below <Bryan Rodas MD - Last Filed: 02/21/22 20:20> Constitutional: Constitutional: Denies body ache(s), Denies chills, Denies excessive sweating, Denies fatigue, Denies fever(s), Denies headache(s), Denies lethargy, Denies malaise, Denies weakness and Denies weight loss <Bryan Rodas MD - Last Filed: 02/21/22 20:20> Eyes: Eyes: Denies blurry vision, Denies change in vision and Denies loss of vision <Bryan Rodas MD - Last Filed: 02/21/22 20:20> ENT: Denies ear discharge, Denies headache(s), Denies lip swelling, Denies epistaxis, Denies nasal congestion, Denies neck pain, Denies throat swelling and Denies tongue swelling <Bryan Rodas MD - Last Filed: 02/21/22 20:20> Cardiovascular: Cardiovascular: Denies chest pain, Denies chest pain at rest, Denies chest pain with activity, Denies diaphoresis, Denies rapid heart rate, Denies edema, Denies irregular heart rhythm, Denies lightheadedness, Denies palpitations, Denies dyspnea and Denies dyspnea on exertion <Bryan Rodas MD - Last Filed: 02/21/22 20:20> Respiratory: Respiratory: Denies chest congestion, Denies cough, Denies hemoptysis, Denies dyspnea and Denies dyspnea on exertion <Bryan Rodas MD - Last Filed: 02/21/22 20:20> Gastrointestinal: Gastrointestinal: Denies abdominal pain, Denies melena, Denies hematochezia, Denies diarrhea, Denies nausea, Denies vomiting and Denies hematemesis <Bryan Rodas MD - Last Filed: 02/21/22 20:20> Musculoskeletal: Musculoskeletal: Denies abnormal gait, Denies deformity, Denies joint swelling, Denies limited range of motion, Denies neck pain and Denies numbness <Bryan Rodas MD - Last Filed: 02/21/22 20:20> Neurologic: Denies Abnormal speech present, Denies abnormal gait, Denies confusion, Denies dizziness, Denies headache(s), Denies focal weakness, Denies loss of vision, Denies numbness, Denies Other visual disturbances, Denies Sensory deficit (Neuro) and Denies weakness <Bryan Rodas MD - Last Filed: 02/21/22 20:20> Psychiatric: Psychiatric: Denies confusion, Denies depression, Denies auditory hallucinations, Denies homicidal ideation and Denies suicidal ideation <Bryan Rodas MD - Last Filed: 02/21/22 20:20> Endocrine: Endocrine: Denies cold intolerance, Denies excessive
[2022-02-21 17:31] LABS: Anion Gap 7 mmol/L (8-16); Blood Urea Nitrogen 14 mg/dL (9-20); Calcium 9.7 mg/dL (8.4-10.2); Carbon Dioxide 27 mmol/L (22-30); Chloride 107 mmol/L (98-107); Estimated CRCL calculation 37 ml/min; Estimated Glomerular Filt Rate > 60; Glucose 100 mg/dL (65-110); Potassium 4.6 mmol/L (3.4-5.0); Sodium 141 mmol/L (137-145)
[2022-02-21 17:32] LABS: Partial Thromboplastin Time 32.2 SECONDS (22.3-36.8); Prothrombin Time 12.9 Seconds (11.1-14.7)
[2022-02-21 17:43] LABS: Troponin I < 0.012 ng/mL (0.000-0.034)
[2022-02-21 17:45] VITALS: BP 143/102; PULSE 96; RESP 14; O2SAT 95
[2022-02-21] MEDS: HYDROcodone/acetaminophen (*CRX) 5-325 MG TABLET 1 TAB PO (18:37)
--- NOTE | 2022-02-21 19:30 | PC.NURSE ---
Attempted to call Pt. son x2 with no answer. Pt. will take a cab home.
[2022-02-21 19:42] VITALS: BP 134/85; PULSE 97; RESP 12; O2SAT 98
[2022-02-21] MEDS: IPRATROPIUM BR 0.02% INH SOLN 0.5 MG/2.5 ML VIAL INHALATION (20:22)
[2022-02-21 20:23] VITALS: PULSE 103; RESP 20
[2022-02-21] MEDS: ALBUTEROL SULFATE NEB 2.5 MG/3 ML INH 5 MG INHALATION (20:23)
[2022-02-21 20:39] VITALS: PULSE 110
== END 2022-02-21 20:40 | disposition home or self-care (01) ==
PROVIDERS: Emergency Provider Emergency Medicine; PCP Internal Medicine
DX: S41.112A Laceration without foreign body of left upper arm, initial encounter (principal); S09.90XA Unspecified injury of head, initial encounter; R42 Dizziness and giddiness; J44.9 Chronic obstructive pulmonary disease, unspecified; I69.90 Unspecified sequelae of unspecified cerebrovascular disease; H40.1113 Primary open-angle glaucoma, right eye, severe stage; Z87.891 Personal history of nicotine dependence; Z79.82 Long term (current) use of aspirin; I45.10 Unspecified right bundle-branch block; R94.31 Abnormal electrocardiogram [ECG] [EKG]; M47.816 Spondylosis without myelopathy or radiculopathy, lumbar region; M47.817 Spondylosis without myelopathy or radiculopathy, lumbosacral region; M48.54XA Collapsed vertebra, not elsewhere classified, thoracic region, initial encounter for fracture; M48.56XA Collapsed vertebra, not elsewhere classified, lumbar region, initial encounter for fracture; W18.39XA Other fall on same level, initial encounter
CPT/HCPCS: 36415; 70450; 72131; 73060; 80048; 84484; 85610; 85730; 93005; 94640; 99284; A9270

== ENCOUNTER 2023-03-16 14:07 | Inpatient (IN) | payer MEDICARE, SELFPAY ==
--- NOTE | ~2023-03-16 | XR_ITS ---
XR chest 1V portable 03/16/2023 16:19 Indication: Weakness. Emphysema. COPD. Procedure: AP portable chest Comparison: Comparison to multiple prior studies sequentially, with oldest reviewed study dated 02/05. Findings: There is a developing cavitary mass in the left apex with surrounding rind of soft tissue. There are ill-defined nodular densities inferior to the cavitary lesion. There are coarse interstitia l infiltrates of the right upper thorax. There is emphysema. No pleural effusion effusion or pneumoth orax. Impression: 1: Developing cavitary mass left apex with adjacent satellite nodules. These may be findings secondar y to infectious/inflammatory etiology, although neoplasm is not excluded. Reviewed, dictated and finalized at location A. Impression: 1: Developing cavitary mass left apex with adjacent satellite nodules. These ma y be findings secondary to infectious/inflammatory etiology, although neoplasm is not excluded.
--- NOTE | ~2023-03-16 | CT_ITS ---
EXAMINATION: CT cervical spine wo con DATE: 03/16/2023 14:58 INDICATION: Head injury. TECHNIQUE: Computed tomography (CT) of the cervical spine was performed without intravenous contrast. The dose-length product was 187 mGy-cm. Automated exposure control and iterative reconstruction tech nique were employed. COMPARISON: None FINDINGS: There is disc narrowing at C5-6 and C6-7. There is degenerative anterolisthesis at C4-5 and retrolisthesis at C5-6. Odontoid process is normal. No evidence for perched facet. Craniovertebral j unction is normal. There is moderate-severe multilevel facet hypertrophy. There is mild multilevel un cinate hypertrophy. There is mild levocurvature of the cervical spine. There is emphysema with scarri ng at the lung apices. No significant paraspinal soft tissue abnormality. There is atherosclerosis of the carotid arteries. There is intracranial atherosclerosis. No acute fracture or traumatic malalign ment. IMPRESSION: 1. No acute abnormality of the cervical spine. 2: Severe cervical spondylosis. Reviewed, dictated and finalized at location A.
--- NOTE | ~2023-03-16 | XR_ITS ---
XR elbow LT min 3V 03/16/2023 14:53 INDICATION: Left elbow pain and bruising after fall PROCEDURE: 4 views left elbow COMPARISON: No prior studies FINDINGS: Fracture, dislocation or subluxation is not identified. Osteopenia. No significant joint ef fusion. The soft tissues appear within normal limits. No foreign bodies are identified. IMPRESSION: 1: NO ACUTE BONE OR JOINT ABNORMALITY IDENTIFIED. Reviewed, dictated and finalized at location A.
--- NOTE | ~2023-03-16 | CT_ITS ---
EXAMINATION: CT diagnostic chest w con DATE: 03/16/2023 17:26 INDICATION: Cavitary left lung mass TECHNIQUE: Computed tomography (CT) of the chest was performed with 75 cc Omnipaque 350 intravenous c ontrast. The dose-length product was 187.39 mGy-cm. Automated exposure control and iterative reconstr uction technique were employed. COMPARISON: CT dated 08/29/2021 FINDINGS: There is atherosclerosis of the aorta and coronary arteries. There is ectasia of the descen ding thoracic aorta measuring up to 3.9 cm. There is enlargement of the pulmonary arteries, consisten t with pulmonary hypertension. There is significant stenosis of the left subclavian artery beginning at its origin. No thoracic lymphadenopathy. No significant pleural or pericardial effusion. There are left renal cysts. There is a cavitary mass in the left apex with soft tissue rind and multiple locul ations. There is severe emphysema. There is left lower lobe scarring. IMPRESSION: 1. Loculated left apical mass with soft tissue rind measuring approximately 9.5 cm greatest dimension . This is most likely postinfectious/inflammatory, although neoplasm is not excluded. There is left u pper/lower lobe atelectasis/scarring. 2: Severe emphysema. 3: Extensive atherosclerosis of the aorta with ectasia of the descending thoracic aorta measuring up to 3.9 cm. 4: Pulmonary arterial hypertension. Reviewed, dictated and finalized at location A. IMPRESSION: 1. Loculated left apical mass with soft tissue rind measuring approximately 9.5 cm greatest dimension. This is most likely postinfectious/inflammatory, althou gh neoplasm is not excluded. There is left upper/lower lobe atelectasis/scarrin g. 2: Severe emphysema. 3: Extensive atherosclerosis of the aorta with ectasia of the descending thora cic aorta measuring up to 3.9 cm. 4: Pulmonary arterial hypertension.
--- NOTE | ~2023-03-16 | XR_ITS ---
XR hand LT min 3V 03/16/2023 14:53 Indication: Left hand pain and bruising after fall Procedure: 4 views left hand Comparison: No prior studies for comparison. Findings: There is polyarticular osteoarthritis. Osteopenia. There are loose bodies adjacent to the s econd and third distal interphalangeal joints. No acute fracture, subluxation or dislocation. There i s a healed fifth metacarpal fracture. There are small loose bodies dorsal to the carpal bones on the lateral view. Impression: 1: No acute fracture. Reviewed, dictated and finalized at location A. Impression: 1: No acute fracture.
--- NOTE | ~2023-03-16 | CT_ITS ---
EXAMINATION: CT brain wo con DATE: 03/16/2023 14:58 INDICATION: Minor head injury. TECHNIQUE: Computed tomography (CT) of the head was performed without intravenous contrast. The dose- length product was 681.00 mGy-cm. Automated exposure control and iterative reconstruction technique w ere employed. COMPARISON: CT dated 02/21/2022 FINDINGS: Generalized atrophy. There is a chronic right thalamic infarction. Generalized atrophy. The re are scattered moderate periventricular and subcortical white matter changes, most likely related t o small vessel ischemic disease (microangiopathy). No ventriculomegaly or midline shift. Basilar cist erns are patent. There is intracranial atherosclerosis. No depressed skull fractures. IMPRESSION: 1. No acute intracranial abnormality. 2: Chronic right thalamic infarct. 3: Chronic age-related findings. Reviewed, dictated and finalized at location A.
--- NOTE | ~2023-03-16 | US_ITS ---
EXAMINATION: US venous doppler [facility] DATE: 03/17/2023 10:39 INDICATION: Left upper limb swelling and erythema TECHNIQUE: Grayscale images without and with compression and Doppler images of the left upper extremi ty veins were obtained. COMPARISON: None. FINDINGS: The left internal jugular vein, subclavian vein, axillary vein, brachial vein, basilic vein, cephalic vein, radial vein, and ulnar vein are patent. IMPRESSION: 1. Patent left upper extremity veins. No evidence of venous thrombosis. Reviewed, dictated and finalized at location A.
--- NOTE | ~2023-03-16 | XR_ITS ---
XR forearm LT 2V 03/16/2023 14:53 Indication: Status post fall. Bruising of the left arm. Procedure: 2 views left forearm Comparison: No prior studies for comparison. Findings: Osteopenia. No fracture or traumatic malalignment. No significant soft tissue abnormality. No joint effusion of the elbow. No foreign bodies. Impression: 1: No acute fracture. Reviewed, dictated and finalized at location A. Impression: 1: No acute fracture.
--- NOTE | ~2023-03-16 | XR_ITS ---
Portable chest x-ray Comparison: 03/16/2023 Clinical History: Pneumonia Findings: There is stable consolidation with cavitation or other lucency at the left lung apex. Prob able mild right apical scarring. Underlying COPD probably present. Cardiomediastinal silhouette is s table. Bones and soft tissues are unremarkable. Impression: Stable left apical consolidation with cavitation versus bronchiectasis or bullous change. Underlying COPD. Reviewed, dictated and finalized at location . Impression: Stable left apical consolidation with cavitation versus bronchiectasis or bullo us change. Underlying COPD.
[2023-03-16 14:03] VITALS: BP 101/78; PULSE 109; RESP 16; TEMP 35.9; O2SAT 94
[2023-03-16 14:46] LABS: Basophils Percent Auto 0.2 % (0.2-1.2); Hematocrit 39.6 % (42.0-52.0); Hemoglobin 13.2 g/dL (14.0-18.0); Immature Granulocyte Absolute 0.13 K/mm3 (0.00-0.031); Immature Granulocyte Percent A 0.7 % (0-0.5); Lymphocytes Absolute Auto 0.62 K/mm3 (0.9-3.2); Lymphocytes Percent Auto 3.1 % (18.3-44.2); Mean Corpuscular HGB Conc 33.3 g/dl (32-36); Mean Corpuscular Hemoglobin 34.8 pg (26-34); Mean Corpuscular Volume 104.5 fl (80-100); Mean Platelet Volume 9.9 fl (7.4-10.4); Monocytes Absolute Auto 0.8 K/mm3 (0.1-0.6); Monocytes Percent Auto 3.9 % (2.6-8.5); Neutrophils Absolute Auto 18.4 K/mm3 (1.3-6.7); Neutrophils Percent Auto 92.1 % (45.5-73.1); Nucleated Red Blood Cells Perc 0.1 % (0.0-0.2); Platelet Count Result 259 k/mm3 (150-375); Red Blood Count 3.79 M/mm3 (4.6-6.20); Red Cell Distribution Width 20.2 % (11.5-14.5)
--- NOTE | 2023-03-16 14:50 | ED.FALL ---
HPI - Fall General Chief Complaint: Fall Stated Complaint: neck pain s/p fall History of Present Illness HPI Narrative: Patient is an 82-year-old male who presents ER after a fall. Reports he was trying to get up from his couch when he fell down due to weakness. He got stuck and laid on his left arm. Patient then tried to get back up by grabbing a exercise bicycle but it then fell on top of him. Reports he was lying on the ground for 24 hours. Reports he has been unable to care for himself for 2 years so his brother will come over to help care for him. His brother is long who found him today. Patient had his urinated and defecated on himself. Related Data Home Medications Medication Instructions Recorded Confirmed aspirin 81 mg chewable tablet 81 mg PO DAILY 04/13/21 08/29/21 (Aspirin Childrens) Allergies Allergy/AdvReac Type Severity Reaction Status Date / Time No Known Allergies Allergy Verified 03/16/23 18:31 Review of Systems Review of Systems: All systems reviewed & are unremarkable except as noted in HPI and below Constitutional: Constitutional: Denies chills, Reports fatigue and Denies fever(s) ENT: Denies nasal congestion and Denies sore throat Cardiovascular: Cardiovascular: Denies chest pain, Denies rapid heart rate and Denies radiating jaw, neck or arm pain Respiratory: Respiratory: Denies cough and Denies dyspnea Gastrointestinal: Gastrointestinal: Denies abdominal pain, Denies nausea and Denies vomiting Integumentary/Breasts: Skin/Breast: Reports erythema and Denies rash Comments: Bruising and edema left upper extremity Neurologic: Denies syncope, Denies focal weakness, Denies numbness and Reports weakness PMFSH Past Medical History Medical History COPD with asthma 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 Other Family history non-contributory Social History Social History Smoking status: Current every day smoker Tobacco type: cigars Second hand tobacco smoke exposure: Yes Smoking end date: 09/29/05 Alcohol intake: former Substance use: never Substance use type: does not use Lack of Transportation: YES Lack of Food: Sometimes True Current Housing: I Have Housing Concerned About Future Housing: No Difficulty Paying Gas/Electric Bills: No Difficulty Paying for Meds: No Currently Unemployed: No Education: Grade School Difficulty w/ Childcare or Family Care: No Spiritual care concerns: No Exam Narrative: GENERAL: Chronically ill appearing, well-nourished, and in no acute distress. HEAD: Normocephalic, atraumatic. EYES: PERRL and EOMI. ENT: Mucous membranes moist. Neck: C-spine immobilized. No midline tenderness. CHEST: Clear to auscultation. No respiratory distress. HEART: Regular rate and rhythm. Normal peripheral pulses. ABDOMEN: Soft, nontender, nondistended. EXTREMITIES: Normal range of motion. Left upper extremity edema and bruising from the elbow down to the hand. SKIN: Warm, dry, no rash. NEURO: Alert and oriented x3. PSYCH: Normal mood and affect. Course Course Emergency Course: Patient with chronic debility with rhabdomyolysis and x-ray concerning for cavitary pneumonia. Will be admitted to hospitalist service. IV antibiotics ordered. Vital Signs Vital signs: Vital Signs Temperature 96.6 F L 03/16/23 14:03 Pulse Rate 109 H 03/16/23 14:03 Respiratory Rate 16 03/16/23 14:03 Blood Pressure 101/78 03/16/23 14:03 Pulse Oximetry 94 03/16/23 14:03 Oxygen Delivery Room Air 03/16/23 14:03 Temperature 96.9 F L 03/16/23 18:33 Pulse Rate
[2023-03-16 14:57] LABS: INR 1.1; Partial Thromboplastin Time 33.9 SECONDS (22.3-36.8); Prothrombin Time 15.2 Seconds (11.1-14.7)
[2023-03-16] MEDS: SODIUM CHLORIDE 0.9% IV 1,000 ML 999 ML IV CONT (14:59)
[2023-03-16 15:00] LABS: Ovalocytes 1+ (NORMAL); Platelet Estimate Adequate (Adequate); Schistocytes None Seen (NORMAL)
[2023-03-16 15:02] VITALS: BP 121/80; PULSE 98; RESP 18; O2SAT 98
[2023-03-16 15:11] LABS: Alanine Aminotransferase 29 U/L (6-50); Alkaline Phosphatase 76 U/L (38-126); Anion Gap 9 mmol/L (8-16); Aspartate Amino Transferase 90 U/L (17-59); Bilirubin,Total 1.1 mg/dL (0.2-1.3); Blood Urea Nitrogen 23 mg/dL (9-20); Calcium 8.4 mg/dL (8.4-10.2); Carbon Dioxide 24 mmol/L (22-30); Chloride 102 mmol/L (98-107); Estimated CRCL calculation 33 ml/min; Estimated Glomerular Filt Rate > 60; Glucose 133 mg/dL (65-110); Lipase 31 U/L (23-300); Potassium 4.1 mmol/L (3.4-5.0); Sodium 135 mmol/L (137-145)
[2023-03-16 15:14] LABS: Creatine Kinase 4829 U/L (55-170)
--- NOTE | 2023-03-16 17:33 | PM.IMHP ---
H&P: HPI History of Present Illness Date/Time: 03/16/23 17:00 Chief Complaint: Fall last night. Narrative: This is a pleasant 82-year-old male smoker with history of stroke, chronic obstructive pulmonary disease, depression, and arthritis who presented to the emergency department via EMS from home for evaluation after a fall evening. The patient provides the following history. He lives in his own home and for the past year or more ?I have been living on my couch? due to progressive debility following a stroke with residual left-sided deficit. His brother comes by twice a day to bring him meals and dispose of his dirty depends. Last evening after 19:00 he was trying to get up off of the couch for some reason when he lost his balance and fell forward. An exercise bicycle was nearby and he tried to grab onto that to steady himself but unfortunately it fell on top of him. He was unable to get the bicycle off or call for help and he lay on the ground with his left arm underneath of him until sometime this afternoon when his brother came to check on him. EMS was summoned and he was brought into the emergency department in a C-collar as he was complaining of some neck discomfort when they were assisting him to the cot. He does not think he had any head trauma or loss of consciousness in the fall he denies any significant injuries however his left arm is noticeably swollen and discolored. He has several skin tears on his chest and arms that are not necessarily bothersome to him. In the ED: On arrival his pulse was 93, respiratory rate 14, blood pressure 150/94, pulse ox 98% room air, temperature 97.9?. Labs were significant for a WBC count of 20.0, hemoglobin 13.2, hematocrit 39.6%, MCV 104.5, platelets 259, sodium 135, potassium 4.1, BUN 23, creatinine 1.10, glucose 133, AST 90, total CK 4829, total protein 7.0, albumin 4.0. Brain and cervical spine CTs did not show any acute findings. Radiographs of the left upper extremity showed no acute fractures. Chest x-ray showed developing cavitary mass at the left apex with adjacent satellite nodules and a subsequent CT of the chest showed a loculated left apical mass with soft tissue rind measuring approximately 9.5 cm in greatest dimension which is felt to be most likely post infectious/inflammatory though neoplasm cannot be excluded. He received a dose of azithromycin and ceftriaxone and he has been started on IV fluids. He is being admitted in this setting for treatment of pneumonia and rhabdomyolysis following fall. Review of Systems Review of Systems: Twelve systems were reviewed. He denies headache and neck ache. No vertigo. Reports chronic left-sided deficits from prior stroke. No history of venous thromboembolism. He denies chest and pleuritic pain. He does not get very short of breath but again he does not hardly move from his couch. He has a rescue inhaler at home if needed. Denies cold and flu symptoms. No significant cough. Appetite has been fine. He denies nausea, vomiting, and diarrhea. No dysuria. Except as documented, all other systems were reviewed and are negative. [facility] Past Medical History Medical History COPD with asthma History of CVA with residual deficit Left-sided weakness. Primary open angle glaucoma of right eye, severe stage Smoker Surgical History Surgical History H/O shoulder surgery Family History Family History Grandparent No problems noted. Mother Lung cancer Father Cancer of kidney Social History Social History (Updated 03/16/23 @ 21:43 by Celina Francisco PA-C) Social History: Surrogate medical decision maker: Marciotamar Gonzalez, brother. Code status: Full code. Smoking packs per day: 0.5 Smoking cigarettes per day: 10.0 Years smoked: 77 Smoking pack-years: 38.50 Smoking status: Current every day smoker Second hand tobacco smoke
--- NOTE | 2023-03-16 18:00 | ADMGEN ---
This patient, Kyle Gonzalez, was admitted to Medical Room 249-01. Patient/family oriented to hospital policies and general routines including ID bracelet, bed and alarms, visiting hours, pain management, procedures, bathroom and other care routines, personal items, smoking policy, room service/diet, and visiting hours. Information on how to activate the Rapid Response Team has been discussed. Patient/Family are encouraged to report perceived risks to care and to ask questions if they do not understand what they are told or what they should do.
[2023-03-16 18:33] VITALS: BP 149/87; PULSE 87; RESP 18; TEMP 36.1; O2SAT 96
[2023-03-16 18:34] VITALS: BMI 17.2
[2023-03-16] MEDS: SODIUM CHLORIDE 0.9% IV 1,000 ML 125 ML IV CONT (18:54)
[2023-03-16] MEDS: AZITHROMYCIN 500 MG/NS 250 ML 500 MG/250 ML BAG 250 MG IVPB (20:45)
[2023-03-16 22:00] VITALS: BP 135/90; PULSE 89; RESP 20; TEMP 36.1; O2SAT 98
[2023-03-17 00:51] LABS: Iron 46 ug/dL (49-181)
[2023-03-17 01:01] LABS: Percent Iron Saturation 16 % (20-50)
[2023-03-17 01:47] LABS: Folic Acid 9.8 ng/mL (2.76->20)
[2023-03-17 04:15] LABS: Appearance Urine Clear (Clear); Bacteria Urine None Seen /hpf; Bilirubin Urine Negative (Negative); Blood Urine 3+ (Negative); Color Urine Yellow (Yellow); Glucose Urine UA Negative (Negative); Ketones Urine Negative (Negative); Leukocyte Esterase Ur Negative LEU/UL (Negative); Nitrate Urine Negative (Negative); Non Pathogenic Casts 0-2; Protein Urine 2+ mg/dL (Negative); Squamous Epithelial Cell Urine None seen /hpf (Few); WBC Urine 0-5 /hpf; pH Urine 5.5 (5.0-9.0)
[2023-03-17 04:20] LABS: Add Urine Microscopic? YES; Specific Grav Ur 1.042 (1.001-1.035)
[2023-03-17] MEDS: SODIUM CHLORIDE 0.9% IV 1,000 ML 125 ML IV CONT ×2 (05:29→15:14)
[2023-03-17 06:00] VITALS: BP 108/89; PULSE 91; RESP 20; TEMP 36.2; O2SAT 98
[2023-03-17 06:10] LABS: Hematocrit 35.5 % (42.0-52.0); Hemoglobin 11.8 g/dL (14.0-18.0); Mean Corpuscular HGB Conc 33.2 g/dl (32-36); Mean Corpuscular Hemoglobin 34.3 pg (26-34); Mean Corpuscular Volume 103.2 fl (80-100); Mean Platelet Volume 10.5 fl (7.4-10.4); Platelet Count Result 244 k/mm3 (150-375); Red Blood Count 3.44 M/mm3 (4.6-6.20); Red Cell Distribution Width 20.4 % (11.5-14.5); White Blood Count 16.9 K/mm3 (4.5-10.0)
[2023-03-17 06:24] LABS: Alanine Aminotransferase 40 U/L (6-50); Albumin Level 3.5 g/dL (3.5-5.1); Alkaline Phosphatase 67 U/L (38-126); Anion Gap 4 mmol/L (8-16); Aspartate Amino Transferase 141 U/L (17-59); Bilirubin,Total 0.8 mg/dL (0.2-1.3); Blood Urea Nitrogen 21 mg/dL (9-20); Calcium 8.3 mg/dL (8.4-10.2); Carbon Dioxide 27 mmol/L (22-30); Chloride 105 mmol/L (98-107); Estimated CRCL calculation 35 ml/min; Estimated Glomerular Filt Rate > 60; Glucose 74 mg/dL (65-110); Potassium 3.7 mmol/L (3.4-5.0); Sodium 136 mmol/L (137-145)
[2023-03-17 06:55] LABS: Creatine Kinase 4336 U/L (55-170)
--- NOTE | 2023-03-17 08:15 | P.PNIM_ITS ---
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 * Fall precautions * PT/OT when appropriate (2) Rhabdomyolysis: Qualifiers: Encounter type: initial encounter Rhabdomyolysis type: traumatic Qualified Code(s): T79.6XXA - Traumatic ischemia of muscle, initial encounter Code(s): M62.82 - Rhabdomyolysis Status: Acute Assessment and Plan: * Related to fall * On ground for roughly 24 hours * CK elevated at 4829 down to 4336 * IV fluids continued at 125 ml/hr * BUN/Cr stable at 21/1.00 * Continue to trend labs (3) Left upper lobe pneumonia: Qualifiers: Pneumonia type: due to unspecified organism Qualified Code(s): J18.9 - Pneumonia, unspecified organism Code(s): J18.9 - Pneumonia, unspecified organism Status: Acute Assessment and Plan: * Chest xray shows cavitary mass left apex with satellite nodules (Infectious or inflammatory vs malignancy) * Chest CT shows Loculated left apical mass with soft tissue rind measuring approximately 9.5 cm greatest dimension, empysema * Continue ceftriaxone and azithromycin for now * WBC elevated upon arrival at 20.0, currently down to 16.9 * Continue to trend labs * Repeat chest xray in the am * sputum culture * Legionella, pneumococcal, and mycoplasma IgM * Pep and IS therapy (4) Debility: Code(s): R53.81 - Other malaise Status: Acute Assessment and Plan: * Left sided weakness noted to be Chronic from a prior stroke * Head CT no acute intracranial abnormality, chronic right thalamic infart * PT/OT (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 * Continue neb treatments * Trend respiratory status * seems to be an exacerbation * Most like related to PNA (6) Tobacco abuse: Code(s): Z72.0 - Tobacco use Status: Acute Assessment and Plan: * Nicotine patch and gum ordered * Smoking cessation education given (7) Macrocytic anemia: Code(s): D53.9 - Nutritional anemia, unspecified Status: Acute Assessment and Plan: * H/H 11.8/35.5 * Anemia labs iron 46, TIBC 283, % sat 16, Ferritin 236, B12 477, Folate 9.8 * Continue to trend labs * Transfuse as indicated of Hgb <7.0 (8) Transaminitis: Code(s): R74.01 - Elevation of levels of liver transaminase levels Status: Acute Assessment and Plan: * AST/ALT 141/40 * Continue to trend labs * Hep panel in the am * Consider RUQ ultrasound Time Spent With Patient Time: 53 minut
--- NOTE | 2023-03-17 08:15 | PM.IMPN ---
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 Fall precautions PT/OT when appropriate (2) Rhabdomyolysis: Qualifiers: Encounter type: initial encounter Rhabdomyolysis type: traumatic Qualified Code(s): T79.6XXA - Traumatic ischemia of muscle, initial encounter Code(s): M62.82 - Rhabdomyolysis Status: Acute Assessment and Plan: Related to fall On ground for roughly 24 hours CK elevated at 4829 down to 4336 IV fluids continued at 125 ml/hr BUN/Cr stable at 21/1.00 Continue to trend labs (3) Left upper lobe pneumonia: Qualifiers: Pneumonia type: due to unspecified organism Qualified Code(s): J18.9 - Pneumonia, unspecified organism Code(s): J18.9 - Pneumonia, unspecified organism Status: Acute Assessment and Plan: Chest xray shows cavitary mass left apex with satellite nodules (Infectious or inflammatory vs malignancy) Chest CT shows Loculated left apical mass with soft tissue rind measuring approximately 9.5 cm greatest dimension, empysema Continue ceftriaxone and azithromycin for now WBC elevated upon arrival at 20.0, currently down to 16.9 Continue to trend labs Repeat chest xray in the am sputum culture Legionella, pneumococcal, and mycoplasma IgM Pep and IS therapy (4) Debility: Code(s): R53.81 - Other malaise Status: Acute Assessment and Plan: Left sided weakness noted to be Chronic from a prior stroke Head CT no acute intracranial abnormality, chronic right thalamic infart PT/OT (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 Continue neb treatments Trend respiratory status seems to be an exacerbation Most like related to PNA (6) Tobacco abuse: Code(s): Z72.0 - Tobacco use Status: Acute Assessment and Plan: Nicotine patch and gum ordered Smoking cessation education given (7) Macrocytic anemia: Code(s): D53.9 - Nutritional anemia, unspecified Status: Acute Assessment and Plan: H/H 11.8/35.5 Anemia labs iron 46, TIBC 283, % sat 16, Ferritin 236, B12 477, Folate 9.8 Continue to trend labs Transfuse as indicated of Hgb <7.0 (8) Transaminitis: Code(s): R74.01 - Elevation of levels of liver transaminase levels Status: Acute Assessment and Plan: AST/ALT 141/40 Continue to trend labs Hep panel in the am Consider RUQ ultrasound Time Spent With Patient Time: 53 minutes Time with patient: Greater than 35 minutes Subjective Date/time seen: 03/17/23814 Interval history: 03/17/23814 Patient is laying in bed. He denies any chest pain, nausea, vomiting, diarrhea or constipation. Patient did state that he does have shortness of breath however nothing more than normal. He also talked about a cough and he did say that it is ashby and green and is thicker than normal. It was really hard to get a complete review of systems as he would stay tell you a story with every question you ask. For example I asked him about p.o. intake which he stated was not too good and the
[2023-03-17] MEDS: guaiFENesin 12 HR 600 MG TABCR 1200 MG PO ×2 (09:33→17:40)
[2023-03-17] MEDS: ASPIRIN 81 MG CHEWABLE TABLET PO (09:33)
[2023-03-17 09:39] VITALS: PULSE 127; O2SAT 92; O2SAT 95
--- NOTE | 2023-03-17 13:34 | PCCCNOTE ---
On 03/17/23, the student, [Ani Holder ], provided care and completed [facility] documentation on this patient. I have reviewed the student's documentation and agree with the findings.
--- NOTE | 2023-03-17 13:43 | PCPTNOTE ---
On 03/17/23, the student, [Michelle Singh], provided care and completed [facility] documentation on this patient. I have reviewed the student's documentation and agree with the findings.
[2023-03-17 14:11] VITALS: BP 135/84; PULSE 98; RESP 19; TEMP 36.7; O2SAT 98
[2023-03-17 14:13] VITALS: BMI 17.6
[2023-03-17] MEDS: AZITHROMYCIN 500 MG/NS 250 ML 500 MG/250 ML BAG 250 MG IVPB (17:39)
[2023-03-17 21:25] VITALS: BP 137/76; PULSE 98; RESP 17; TEMP 37.1; O2SAT 96
--- NOTE | 2023-03-17 21:31 | PCRCNOTE ---
Addendum entered by Shira Arias, CODING DIRECTOR 03/18/23 04:40: Pt called later and was more awake and alert and was able to take Advair inhaler Original Note: Pt not able to follow instructions to take Advair inhaler
[2023-03-18] VITALS (7 sets, daily range): BP systolic 107–130; BP diastolic 50–63; PULSE 56–98; RESP 17–20; TEMP 36.6–37; O2SAT 92–97
[2023-03-18] MEDS: SODIUM CHLORIDE 0.9% IV 1,000 ML 125 ML IV CONT ×3 (00:52→17:34)
[2023-03-18] MEDS: FLUTICASONE/SALMETEROL 45-21 MCG INHALER 1 PUFF 2 PUFF INHALATION ×3 (01:11→20:21)
[2023-03-18] MEDS: guaiFENesin 12 HR 600 MG TABCR 1200 MG PO ×2 (08:15→17:00)
[2023-03-18] MEDS: ASPIRIN 81 MG CHEWABLE TABLET PO (08:15)
--- NOTE | 2023-03-18 15:56 | P.PNIM_ITS ---
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 * Fall precautions * PT/OT when appropriate (2) Rhabdomyolysis: Qualifiers: Encounter type: initial encounter Rhabdomyolysis type: traumatic Qualified Code(s): T79.6XXA - Traumatic ischemia of muscle, initial encounter Code(s): M62.82 - Rhabdomyolysis Status: Acute Assessment and Plan: * Related to fall * On ground for roughly 24 hours * CK elevated at 4829 down to 4336, now 725 * IV fluids continued at 125 ml/hr * BUN/Cr stable at 21/1.00, currently 12/0.90 * Continue to trend labs (3) Left upper lobe pneumonia: Qualifiers: Pneumonia type: due to unspecified organism Qualified Code(s): J18.9 - Pneumonia, unspecified organism Code(s): J18.9 - Pneumonia, unspecified organism Status: Acute Assessment and Plan: * Chest xray shows cavitary mass left apex with satellite nodules (Infectious or inflammatory vs malignancy) * Chest CT shows Loculated left apical mass with soft tissue rind measuring approximately 9.5 cm greatest dimension, empysema * Continue ceftriaxone and azithromycin for now * WBC elevated upon arrival at 20.0, 16.9, currently 12.1 * Continue to trend labs * Repeat chest xray in the am * sputum culture * Legionella, pneumococcal, and mycoplasma IgM * Pep and IS therapy (4) Debility: Code(s): R53.81 - Other malaise Status: Acute Assessment and Plan: * Left sided weakness noted to be Chronic from a prior stroke * Head CT no acute intracranial abnormality, chronic right thalamic infart * PT/OT (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 * Continue neb treatments * Trend respiratory status * seems to be an exacerbation * Most like related to PNA (6) Tobacco abuse: Code(s): Z72.0 - Tobacco use Status: Acute Assessment and Plan: * Nicotine patch and gum ordered * Smoking cessation education given (7) Macrocytic anemia: Code(s): D53.9 - Nutritional anemia, unspecified Status: Acute Assessment and Plan: * H/H 11.8/35.5, 10.2/31.2 * Anemia labs iron 46, TIBC 283, % sat 16, Ferritin 236, B12 477, Folate 9.8 * Continue to trend labs * Transfuse as indicated of Hgb <7.0 (8) Transaminitis: Code(s): R74.01 - Elevation of levels of liver transaminase levels Status: Acute Assessment and Plan: * AST/ALT 141/40 * Continue to trend labs * Hep panel in the am * Consider RUQ ultrasound (9) Severe p
--- NOTE | 2023-03-18 15:56 | PM.IMPN ---
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 Fall precautions PT/OT when appropriate (2) Rhabdomyolysis: Qualifiers: Encounter type: initial encounter Rhabdomyolysis type: traumatic Qualified Code(s): T79.6XXA - Traumatic ischemia of muscle, initial encounter Code(s): M62.82 - Rhabdomyolysis Status: Acute Assessment and Plan: Related to fall On ground for roughly 24 hours CK elevated at 4829 down to 4336, now 725 IV fluids continued at 125 ml/hr BUN/Cr stable at 21/1.00, currently 12/0.90 Continue to trend labs (3) Left upper lobe pneumonia: Qualifiers: Pneumonia type: due to unspecified organism Qualified Code(s): J18.9 - Pneumonia, unspecified organism Code(s): J18.9 - Pneumonia, unspecified organism Status: Acute Assessment and Plan: Chest xray shows cavitary mass left apex with satellite nodules (Infectious or inflammatory vs malignancy) Chest CT shows Loculated left apical mass with soft tissue rind measuring approximately 9.5 cm greatest dimension, empysema Continue ceftriaxone and azithromycin for now WBC elevated upon arrival at 20.0, 16.9, currently 12.1 Continue to trend labs Repeat chest xray in the am sputum culture Legionella, pneumococcal, and mycoplasma IgM Pep and IS therapy (4) Debility: Code(s): R53.81 - Other malaise Status: Acute Assessment and Plan: Left sided weakness noted to be Chronic from a prior stroke Head CT no acute intracranial abnormality, chronic right thalamic infart PT/OT (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 Continue neb treatments Trend respiratory status seems to be an exacerbation Most like related to PNA (6) Tobacco abuse: Code(s): Z72.0 - Tobacco use Status: Acute Assessment and Plan: Nicotine patch and gum ordered Smoking cessation education given (7) Macrocytic anemia: Code(s): D53.9 - Nutritional anemia, unspecified Status: Acute Assessment and Plan: H/H 11.8/35.5, 10.2/31.2 Anemia labs iron 46, TIBC 283, % sat 16, Ferritin 236, B12 477, Folate 9.8 Continue to trend labs Transfuse as indicated of Hgb <7.0 (8) Transaminitis: Code(s): R74.01 - Elevation of levels of liver transaminase levels Status: Acute Assessment and Plan: AST/ALT 141/40 Continue to trend labs Hep panel in the am Consider RUQ ultrasound (9) Severe protein-calorie malnutrition: Code(s): E43 - Unspecified severe protein-calorie malnutrition Status: Acute Assessment and Plan: Meets criteria with unintentional weight loss, skipping meals, lack of appetite Dietary consulted Supplements added Time Spent With Patient Time: 53 minutes Subjective Date/time seen: 03/18/231344 Interval history: 03/18/231344 Patient was lying in bed. Patient stated that he was tired and sleepy. He denies any current chest pain or shortness of breath. He is currently alert and oriented times 1-2. He does have some we
[2023-03-18 16:23] LABS: Hematocrit 31.2 % (42.0-52.0); Hemoglobin 10.2 g/dL (14.0-18.0); Mean Corpuscular HGB Conc 32.7 g/dl (32-36); Mean Corpuscular Hemoglobin 34.2 pg (26-34); Mean Corpuscular Volume 104.7 fl (80-100); Mean Platelet Volume 9.7 fl (7.4-10.4); Platelet Count Result 206 k/mm3 (150-375); Red Blood Count 2.98 M/mm3 (4.6-6.20); White Blood Count 12.1 K/mm3 (4.5-10.0)
[2023-03-18 16:41] LABS: Alanine Aminotransferase 36 U/L (6-50); Albumin Level 2.9 g/dL (3.5-5.1); Alkaline Phosphatase 74 U/L (38-126); Anion Gap 2 mmol/L (8-16); Aspartate Amino Transferase 81 U/L (17-59); Bilirubin,Total 0.4 mg/dL (0.2-1.3); Blood Urea Nitrogen 17 mg/dL (9-20); Calcium 7.5 mg/dL (8.4-10.2); Carbon Dioxide 27 mmol/L (22-30); Chloride 106 mmol/L (98-107); Creatine Kinase 725 U/L (55-170); Estimated CRCL calculation 40 ml/min; Estimated Glomerular Filt Rate > 60; Glucose 98 mg/dL (65-110); Potassium 3.5 mmol/L (3.4-5.0); Sodium 135 mmol/L (137-145)
[2023-03-18] MEDS: AZITHROMYCIN 500 MG/NS 250 ML 500 MG/250 ML BAG 250 MG IVPB (16:59)
[2023-03-18] MEDS: FERROUS SULFATE 324 MG TABLET PO (17:00)
[2023-03-19] MEDS: SODIUM CHLORIDE 0.9% IV 1,000 ML 125 ML IV CONT (02:49)
[2023-03-19 06:00] VITALS: BP 110/61; PULSE 95; RESP 18; TEMP 36.8; O2SAT 97
--- NOTE | 2023-03-19 06:42 | P.CDI_ITS ---
CDI Query Clarification Request BMI 17.6 Nutritional Diagnostic Statement Severe protein calorie malnutrition related to chronic self care deficit, past stroke, weakness as evidence by pt reports of intake <75% needs > 1 month: severe muscle wasting and fat loss as documented in NFPE findings. Pleaser refer to the comprehensive nutrition assessment for further information. Please clarify severity of protein calorie malnutrition if known * Mild * Moderate * Severe * Other/ Unspecified <Apryl Livingston RN - Last Filed: 03/19/23 06:48> Clarified Diagnosis Clarified Diagnosis: updated <DAMIR Sánchez - Last Filed: 03/19/23 07:41>
[2023-03-19 06:43] LABS: Basophils Absolute Auto 0.1 K/mm3 (0.0-0.1); Basophils Percent Auto 0.6 % (0.2-1.2); Eosinophils Absolute Auto 0.2 K/mm3 (0-0.3); Eosinophils Percent Auto 2.1 % (0-4.4); Hematocrit 30.9 % (42.0-52.0); Hemoglobin 10.1 g/dL (14.0-18.0); Immature Granulocyte Absolute 0.05 K/mm3 (0.00-0.031); Immature Granulocyte Percent A 0.5 % (0-0.5); Lymphocytes Absolute Auto 1.44 K/mm3 (0.9-3.2); Lymphocytes Percent Auto 13.8 % (18.3-44.2); Mean Corpuscular HGB Conc 32.7 g/dl (32-36); Mean Corpuscular Hemoglobin 34.2 pg (26-34); Mean Corpuscular Volume 104.7 fl (80-100); Mean Platelet Volume 10.3 fl (7.4-10.4); Monocytes Absolute Auto 0.7 K/mm3 (0.1-0.6); Neutrophils Absolute Auto 7.9 K/mm3 (1.3-6.7); Platelet Count Result 215 k/mm3 (150-375); Red Blood Count 2.95 M/mm3 (4.6-6.20); Red Cell Distribution Width 20.1 % (11.5-14.5); White Blood Count 10.4 K/mm3 (4.5-10.0)
[2023-03-19 06:51] LABS: Alanine Aminotransferase 35 U/L (6-50); Albumin Level 2.8 g/dL (3.5-5.1); Alkaline Phosphatase 62 U/L (38-126); Anion Gap 2 mmol/L (8-16); Aspartate Amino Transferase 66 U/L (17-59); Bilirubin,Total 0.6 mg/dL (0.2-1.3); Blood Urea Nitrogen 12 mg/dL (9-20); Calcium 7.6 mg/dL (8.4-10.2); Carbon Dioxide 29 mmol/L (22-30); Chloride 105 mmol/L (98-107); Estimated CRCL calculation 39 ml/min; Estimated Glomerular Filt Rate > 60; Glucose 81 mg/dL (65-110); Magnesium 1.9 mg/dL (1.6-2.3); Potassium 3.8 mmol/L (3.4-5.0); Sodium 136 mmol/L (137-145)
[2023-03-19 07:50] VITALS: PULSE 94; RESP 18; O2SAT 97
[2023-03-19] MEDS: FLUTICASONE/SALMETEROL 45-21 MCG INHALER 1 PUFF 2 PUFF INHALATION ×2 (07:50→20:16)
[2023-03-19] MEDS: guaiFENesin 12 HR 600 MG TABCR 1200 MG PO ×2 (08:56→17:53)
[2023-03-19] MEDS: ASPIRIN 81 MG CHEWABLE TABLET PO (08:56)
[2023-03-19 09:08] LABS: Creatine Kinase 405 U/L (55-170)
--- NOTE | 2023-03-19 10:00 | PM.IMPN ---
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 Fall precautions PT/OT ordered Will most likely need rehab or placement (2) Rhabdomyolysis: Qualifiers: Encounter type: initial encounter Rhabdomyolysis type: traumatic Qualified Code(s): T79.6XXA - Traumatic ischemia of muscle, initial encounter Code(s): M62.82 - Rhabdomyolysis Status: Acute Assessment and Plan: Related to fall On ground for roughly 24 hours CK elevated at 4829 down to 4336, now 725 IV fluids continued at 125 ml/hr BUN/Cr stable at 21/1.00, currently 12/0.90 Continue to trend labs (3) Left upper lobe pneumonia: Qualifiers: Pneumonia type: due to unspecified organism Qualified Code(s): J18.9 - Pneumonia, unspecified organism Code(s): J18.9 - Pneumonia, unspecified organism Status: Acute Assessment and Plan: Chest xray shows cavitary mass left apex with satellite nodules (Infectious or inflammatory vs malignancy) Chest CT shows Loculated left apical mass with soft tissue rind measuring approximately 9.5 cm greatest dimension, empysema Continue ceftriaxone and azithromycin for now WBC elevated upon arrival at 20.0, 16.9, currently 10.4 Continue to trend labs Repeat chest xray in the am sputum culture Legionella, pneumococcal, and mycoplasma IgM Pep and IS therapy (4) Debility: Code(s): R53.81 - Other malaise Status: Acute Assessment and Plan: Left sided weakness noted to be Chronic from a prior stroke Head CT no acute intracranial abnormality, chronic right thalamic infart PT/OT (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 Continue neb treatments Trend respiratory status seems to be an exacerbation Most like related to PNA (6) Tobacco abuse: Code(s): Z72.0 - Tobacco use Status: Acute Assessment and Plan: Nicotine patch and gum ordered Smoking cessation education given (7) Macrocytic anemia: Code(s): D53.9 - Nutritional anemia, unspecified Status: Acute Assessment and Plan: H/H 11.8/35.5, currently 10.1/30.9 Anemia labs iron 46, TIBC 283, % sat 16, Ferritin 236, B12 477, Folate 9.8 Continue to trend labs Transfuse as indicated of Hgb <7.0 (8) Transaminitis: Code(s): R74.01 - Elevation of levels of liver transaminase levels Status: Acute Assessment and Plan: AST/ALT 141/40, currently 66/35 Continue to trend labs Hep panel in the am tomorrow Consider RUQ ultrasound (9) Severe protein-calorie malnutrition: Code(s): E43 - Unspecified severe protein-calorie malnutrition Status: Acute Assessment and Plan: Meets criteria with unintentional weight loss, skipping meals, lack of appetite Dietary consulted Supplements added Time Spent With Patient Time: 48 minutes Time with patient: Greater than 35 minutes Subjective Date/time seen: 03/19/23 1000 Interval history: 03/19/23 1000 Patient is doing ok. He is laying in bed. He stated that he is not sure if there
--- NOTE | 2023-03-19 10:00 | P.PNIM_ITS ---
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 * Fall precautions * PT/OT ordered * Will most likely need rehab or placement (2) Rhabdomyolysis: Qualifiers: Encounter type: initial encounter Rhabdomyolysis type: traumatic Qualified Code(s): T79.6XXA - Traumatic ischemia of muscle, initial encounter Code(s): M62.82 - Rhabdomyolysis Status: Acute Assessment and Plan: * Related to fall * On ground for roughly 24 hours * CK elevated at 4829 down to 4336, now 725 * IV fluids continued at 125 ml/hr * BUN/Cr stable at 21/1.00, currently 12/0.90 * Continue to trend labs (3) Left upper lobe pneumonia: Qualifiers: Pneumonia type: due to unspecified organism Qualified Code(s): J18.9 - Pneumonia, unspecified organism Code(s): J18.9 - Pneumonia, unspecified organism Status: Acute Assessment and Plan: * Chest xray shows cavitary mass left apex with satellite nodules (Infectious or inflammatory vs malignancy) * Chest CT shows Loculated left apical mass with soft tissue rind measuring approximately 9.5 cm greatest dimension, empysema * Continue ceftriaxone and azithromycin for now * WBC elevated upon arrival at 20.0, 16.9, currently 10.4 * Continue to trend labs * Repeat chest xray in the am * sputum culture * Legionella, pneumococcal, and mycoplasma IgM * Pep and IS therapy (4) Debility: Code(s): R53.81 - Other malaise Status: Acute Assessment and Plan: * Left sided weakness noted to be Chronic from a prior stroke * Head CT no acute intracranial abnormality, chronic right thalamic infart * PT/OT (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 * Continue neb treatments * Trend respiratory status * seems to be an exacerbation * Most like related to PNA (6) Tobacco abuse: Code(s): Z72.0 - Tobacco use Status: Acute Assessment and Plan: * Nicotine patch and gum ordered * Smoking cessation education given (7) Macrocytic anemia: Code(s): D53.9 - Nutritional anemia, unspecified Status: Acute Assessment and Plan: * H/H 11.8/35.5, currently 10.1/30.9 * Anemia labs iron 46, TIBC 283, % sat 16, Ferritin 236, B12 477, Folate 9.8 * Continue to trend labs * Transfuse as indicated of Hgb <7.0 (8) Transaminitis: Code(s): R74.01 - Elevation of levels of liver transaminase levels Status: Acute Assessment and Plan: * AST/ALT 141/40, currently 66/35 * Continue to trend labs * Hep panel in the am tomorrow *
--- NOTE | 2023-03-19 10:15 | PCPTNOTE ---
Patient refused treatment this session. Educated patient on the importance and benefits of therapy and getting up to chair. Patient continued to refuse and stated just let me . RN aware.
[2023-03-19] MEDS: FERROUS SULFATE 324 MG TABLET PO ×2 (10:48→17:52)
[2023-03-19 14:20] VITALS: BP 139/79; PULSE 87; RESP 20; TEMP 36.8; O2SAT 97
[2023-03-19] MEDS: CEFDINIR 300 MG CAPSULE PO ×2 (15:04→20:30)
[2023-03-19] MEDS: AZITHROMYCIN 250 MG TABLET 500 MG PO (15:05)
[2023-03-19 20:16] VITALS: PULSE 93; RESP 18
[2023-03-19 20:51] VITALS: BP 142/61; PULSE 80; RESP 17; TEMP 36.8; O2SAT 96
[2023-03-20 05:04] LABS: Pneumococcal Antigen Urine Not Detected (Not Detected)
[2023-03-20 05:21] VITALS: BP 122/72; PULSE 81; RESP 17; TEMP 36.7; O2SAT 95
[2023-03-20 05:27] LABS: Basophils Absolute Auto 0.1 K/mm3 (0.0-0.1); Basophils Percent Auto 0.8 % (0.2-1.2); Eosinophils Absolute Auto 0.4 K/mm3 (0-0.3); Eosinophils Percent Auto 3.5 % (0-4.4); Hematocrit 31.4 % (42.0-52.0); Hemoglobin 10.4 g/dL (14.0-18.0); Immature Granulocyte Absolute 0.07 K/mm3 (0.00-0.031); Immature Granulocyte Percent A 0.7 % (0-0.5); Lymphocytes Absolute Auto 1.54 K/mm3 (0.9-3.2); Lymphocytes Percent Auto 14.9 % (18.3-44.2); Mean Corpuscular HGB Conc 33.1 g/dl (32-36); Mean Corpuscular Hemoglobin 34.4 pg (26-34); Mean Platelet Volume 10.6 fl (7.4-10.4); Monocytes Absolute Auto 0.8 K/mm3 (0.1-0.6); Monocytes Percent Auto 7.4 % (2.6-8.5); Neutrophils Absolute Auto 7.5 K/mm3 (1.3-6.7); Neutrophils Percent Auto 72.7 % (45.5-73.1); Platelet Count Result 239 k/mm3 (150-375); Red Blood Count 3.02 M/mm3 (4.6-6.20); Red Cell Distribution Width 19.9 % (11.5-14.5); White Blood Count 10.4 K/mm3 (4.5-10.0)
[2023-03-20 05:48] LABS: Alanine Aminotransferase 37 U/L (6-50); Alkaline Phosphatase 65 U/L (38-126); Anion Gap -2 mmol/L (8-16); Aspartate Amino Transferase 53 U/L (17-59); Bilirubin,Total 0.7 mg/dL (0.2-1.3); Blood Urea Nitrogen 11 mg/dL (9-20); Carbon Dioxide 33 mmol/L (22-30); Chloride 104 mmol/L (98-107); Estimated CRCL calculation 0 ml/min; Estimated Glomerular Filt Rate > 60; Glucose 84 mg/dL (65-110); Potassium 3.9 mmol/L (3.4-5.0); Sodium 135 mmol/L (137-145)
[2023-03-20] MEDS: FLUTICASONE/SALMETEROL 45-21 MCG INHALER 1 PUFF 2 PUFF INHALATION ×2 (07:18→22:12)
[2023-03-20 07:20] VITALS: PULSE 80; RESP 18; O2SAT 93
[2023-03-20] MEDS: CEFDINIR 300 MG CAPSULE PO ×2 (08:53→20:34)
[2023-03-20] MEDS: guaiFENesin 12 HR 600 MG TABCR 1200 MG PO ×2 (08:54→17:25)
[2023-03-20] MEDS: ASPIRIN 81 MG CHEWABLE TABLET PO (08:55)
[2023-03-20] MEDS: AZITHROMYCIN 250 MG TABLET PO (08:55)
--- NOTE | 2023-03-20 11:39 | PCNFU ---
Nutrition Follow-Up Complete: Severe protein calorie malnutrition related to chronic self care deficit, past stroke, weakness as evidenced by pt report of intakes <75% needs >1 month; severe muscle wasting and fat loss as documented in NFPE findings. Adequate PO intake at least 75% meals and supplements Maintain weight during admission Patient is progressing towards goal. We will continue current goal. Pt current nutrition is Regular. Last recorded weight is 49.2 kg, down from admit weight of 51.2 kg. Bowel Motility:+BM reported 03/15 Labs Reviewed:Na 135,Alb 3.0,Hct 31.4,Hgb 10.4 Meds Noted:Mucinex Skin: WNL Additional Notes: Patient remains on regular diet. Oral Intake has been 75-100% of meals. He is drinking diet supplements of Ensure compact at meals providing an additional 220 kcals and 9 gms protein. Agree with diet orders. Monitoring intakes, weights, supplement tolerance, plan of care, labs Follow up in 5 days
[2023-03-20] MEDS: FERROUS SULFATE 324 MG TABLET PO ×2 (12:03→17:25)
[2023-03-20] MEDS: methylPREDNISolone SOD SUCC 125 MG VIAL IV PUSH (12:04)
[2023-03-20 14:19] VITALS: BP 143/82; PULSE 92; RESP 17; TEMP 36.5; O2SAT 94
[2023-03-20 15:10] LABS: Mycoplasma IgM Antibody Titer 86 U/mL (<770)
--- NOTE | 2023-03-20 15:13 | P.PNIM_ITS ---
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 * Fall precautions * PT/OT ordered * Awaiting placement this time (2) Rhabdomyolysis: Qualifiers: Rhabdomyolysis type: traumatic Encounter type: initial encounter Qualified Code(s): T79.6XXA - Traumatic ischemia of muscle, initial encounter Code(s): M62.82 - Rhabdomyolysis Status: Resolved Assessment and Plan: * Related to fall * On ground for roughly 24 hours * CK elevated at 4829 down to 4336, now 725 * IV fluids continued at 125 ml/hr * BUN/Cr stable at 21/1.00, currently 12/0.90 * Continue to trend labs (3) Left upper lobe pneumonia: Qualifiers: Pneumonia type: due to unspecified organism Qualified Code(s): J18.9 - Pneumonia, unspecified organism Code(s): J18.9 - Pneumonia, unspecified organism Status: Acute Assessment and Plan: * Chest xray shows cavitary mass left apex with satellite nodules (Infectious or inflammatory vs malignancy) * Chest CT shows Loculated left apical mass with soft tissue rind measuring approximately 9.5 cm greatest dimension, empysema * Continue ceftriaxone and azithromycin for now 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 * Continue neb treatments * Trend respiratory status * seems to be an exacerbation * Most like related to PNA (6) Tobacco abuse: Code(s): Z72.0 - Tobacco use Status: Chronic Assessment and Plan: * Nicotine patch and gum ordered * Smoking cessation education given (7) Macrocytic anemia: Code(s): D53.9 - Nutritional anemia, unspecified Status: Chronic Assessment and Plan: * H/H 11.8/35.5, currently 10.1/30.9 * Anemia labs iron 46, TIBC 283, % sat 16, Ferritin 236, B12 477, Folate 9.8 * Continue to trend labs * Transfuse as indicated of Hgb <7.0 (8) Transaminitis: Code(s): R74.01 - Elevation of levels of liver transaminase levels Status: Resolved Assessment and Plan: * AST/ALT 141/40, currently 66/35 * Continue to trend labs * Hep panel in the am tomorrow * C
--- NOTE | 2023-03-20 15:13 | PM.IMPN ---
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 Fall precautions PT/OT ordered Awaiting placement this time (2) Rhabdomyolysis: Qualifiers: Rhabdomyolysis type: traumatic Encounter type: initial encounter Qualified Code(s): T79.6XXA - Traumatic ischemia of muscle, initial encounter Code(s): M62.82 - Rhabdomyolysis Status: Resolved Assessment and Plan: Related to fall On ground for roughly 24 hours CK elevated at 4829 down to 4336, now 725 IV fluids continued at 125 ml/hr BUN/Cr stable at 21/1.00, currently 12/0.90 Continue to trend labs (3) Left upper lobe pneumonia: Qualifiers: Pneumonia type: due to unspecified organism Qualified Code(s): J18.9 - Pneumonia, unspecified organism Code(s): J18.9 - Pneumonia, unspecified organism Status: Acute Assessment and Plan: Chest xray shows cavitary mass left apex with satellite nodules (Infectious or inflammatory vs malignancy) Chest CT shows Loculated left apical mass with soft tissue rind measuring approximately 9.5 cm greatest dimension, empysema Continue ceftriaxone and azithromycin for now 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 Continue neb treatments Trend respiratory status seems to be an exacerbation Most like related to PNA (6) Tobacco abuse: Code(s): Z72.0 - Tobacco use Status: Chronic Assessment and Plan: Nicotine patch and gum ordered Smoking cessation education given (7) Macrocytic anemia: Code(s): D53.9 - Nutritional anemia, unspecified Status: Chronic Assessment and Plan: H/H 11.8/35.5, currently 10.1/30.9 Anemia labs iron 46, TIBC 283, % sat 16, Ferritin 236, B12 477, Folate 9.8 Continue to trend labs Transfuse as indicated of Hgb <7.0 (8) Transaminitis: Code(s): R74.01 - Elevation of levels of liver transaminase levels Status: Resolved Assessment and Plan: AST/ALT 141/40, currently 66/35 Continue to trend labs Hep panel in the am tomorrow Consider RUQ ultrasound (9) Severe protein-calorie malnutrition: Code(s): E43 - Unspecified severe protein-calorie malnutrition Status: Chronic Assessment and Plan: Meets criteria with unintentional weight loss, skipping meals, lack of appetite Dietary consulted Supplements added Subjective Date/time seen: 03/20/23 15:13 Interval history: Patient resting in bed comfortably. Patient not want to be your examined due to have her not wanting to move around the bed and wanting to eat. Patient does not many complaints at this
[2023-03-20 19:49] VITALS: PULSE 92; RESP 17; O2SAT 94
[2023-03-20 20:26] VITALS: BP 148/85; PULSE 81; RESP 17; TEMP 36.4; O2SAT 96
[2023-03-20 22:15] VITALS: PULSE 75; O2SAT 97
[2023-03-21 02:18] LABS: Legionella pneumophila Ag Ur Not Detected (Not Detected)
[2023-03-21 05:34] VITALS: BP 144/87; PULSE 84; RESP 18; TEMP 37.1; O2SAT 97
[2023-03-21 06:28] LABS: Basophils Percent Auto 0.1 % (0.2-1.2); Hematocrit 31.6 % (42.0-52.0); Hemoglobin 10.3 g/dL (14.0-18.0); Immature Granulocyte Absolute 0.08 K/mm3 (0.00-0.031); Immature Granulocyte Percent A 0.8 % (0-0.5); Lymphocytes Absolute Auto 0.75 K/mm3 (0.9-3.2); Lymphocytes Percent Auto 7.1 % (18.3-44.2); Mean Corpuscular HGB Conc 32.6 g/dl (32-36); Mean Corpuscular Hemoglobin 34.3 pg (26-34); Mean Corpuscular Volume 105.3 fl (80-100); Mean Platelet Volume 10.7 fl (7.4-10.4); Monocytes Absolute Auto 0.4 K/mm3 (0.1-0.6); Monocytes Percent Auto 4.2 % (2.6-8.5); Neutrophils Absolute Auto 9.2 K/mm3 (1.3-6.7); Neutrophils Percent Auto 87.8 % (45.5-73.1); Platelet Count Result 267 k/mm3 (150-375); Red Cell Distribution Width 19.6 % (11.5-14.5); White Blood Count 10.5 K/mm3 (4.5-10.0)
[2023-03-21 07:03] LABS: Anisocytosis 2+ (NORMAL); Macrocytosis 1+ (NORMAL); Platelet Estimate Adequate (Adequate); Schistocytes None Seen (NORMAL)
[2023-03-21 07:08] LABS: Alanine Aminotransferase 35 U/L (6-50); Albumin Level 3.3 g/dL (3.5-5.1); Alkaline Phosphatase 58 U/L (38-126); Anion Gap 2 mmol/L (8-16); Aspartate Amino Transferase 42 U/L (17-59); Bilirubin,Total 0.5 mg/dL (0.2-1.3); Blood Urea Nitrogen 23 mg/dL (9-20); Calcium 8.3 mg/dL (8.4-10.2); Carbon Dioxide 31 mmol/L (22-30); Chloride 102 mmol/L (98-107); Estimated CRCL calculation 34 ml/min; Estimated Glomerular Filt Rate > 60; Glucose 118 mg/dL (65-110); Potassium 4.5 mmol/L (3.4-5.0); Sodium 135 mmol/L (137-145)
[2023-03-21 08:00] VITALS: O2SAT 97
[2023-03-21] MEDS: predniSONE 20 MG TABLET 40 MG PO (08:03)
[2023-03-21] MEDS: FERROUS SULFATE 324 MG TABLET PO ×2 (08:03→20:02)
[2023-03-21] MEDS: AZITHROMYCIN 250 MG TABLET PO (08:04)
[2023-03-21] MEDS: CEFDINIR 300 MG CAPSULE PO ×2 (08:04→20:02)
[2023-03-21] MEDS: ASPIRIN 81 MG CHEWABLE TABLET PO (08:04)
[2023-03-21] MEDS: guaiFENesin 12 HR 600 MG TABCR 1200 MG PO ×2 (08:04→20:02)
[2023-03-21] MEDS: FLUTICASONE/SALMETEROL 45-21 MCG INHALER 1 PUFF 2 PUFF INHALATION (08:59)
--- NOTE | 2023-03-21 13:58 | P.PNIM_ITS ---
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 * Fall precautions * PT/OT ordered * Awaiting placement this time (2) Rhabdomyolysis: Qualifiers: Rhabdomyolysis type: traumatic Encounter type: initial encounter Qualified Code(s): T79.6XXA - Traumatic ischemia of muscle, initial encounter Code(s): M62.82 - Rhabdomyolysis Status: Resolved Assessment and Plan: * Related to fall * On ground for roughly 24 hours * CK elevated at 4829 down to 4336, now 725 * IV fluids continued at 125 ml/hr * BUN/Cr stable at 21/1.00, currently 12/0.90 * Continue to trend labs (3) Left upper lobe pneumonia: Qualifiers: Pneumonia type: due to unspecified organism Qualified Code(s): J18.9 - Pneumonia, unspecified organism Code(s): J18.9 - Pneumonia, unspecified organism Status: Acute Assessment and Plan: * Chest xray shows cavitary mass left apex with satellite nodules (Infectious or inflammatory vs malignancy) * Chest CT shows Loculated left apical mass with soft tissue rind measuring approximately 9.5 cm greatest dimension, empysema * IV antibiotics de-escalated to p.o. 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 Emphysema type: unspecified Qualified Code(s): J43.9 - Emphysema, unspecified Code(s): J44.9 - Chronic obstructive pulmonary disease, unspecified Status: Chronic Assessment and Plan: * Chest CT: severe emphysema noted * Complaints of sputum changes, and amount * Continue neb treatments * Trend respiratory status * seems to be an exacerbation * Most like related to PNA (6) Tobacco abuse: Code(s): Z72.0 - Tobacco use Status: Chronic Assessment and Plan: * Nicotine patch and gum ordered * Smoking cessation education given (7) Macrocytic anemia: Code(s): D53.9 - Nutritional anemia, unspecified Status: Chronic Assessment and Plan: * H/H 11.8/35.5, currently 10.1/30.9 * Anemia labs iron 46, TIBC 283, % sat 16, Ferritin 236, B12 477, Folate 9.8 * Continue to trend labs * Transfuse as indicated of Hgb <7.0 (8) Transaminitis: Code(s): R74.01 - Elevation of levels of liver transaminase levels Status: Resolved Assessment and Plan: * AST/ALT 141/40, currently 66/35 * Continue to trend labs * Hep panel in the am tomorrow * Consider RUQ ultrasound
--- NOTE | 2023-03-21 13:58 | PM.IMPN ---
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 Fall precautions PT/OT ordered Awaiting placement this time (2) Rhabdomyolysis: Qualifiers: Rhabdomyolysis type: traumatic Encounter type: initial encounter Qualified Code(s): T79.6XXA - Traumatic ischemia of muscle, initial encounter Code(s): M62.82 - Rhabdomyolysis Status: Resolved Assessment and Plan: Related to fall On ground for roughly 24 hours CK elevated at 4829 down to 4336, now 725 IV fluids continued at 125 ml/hr BUN/Cr stable at 21/1.00, currently 12/0.90 Continue to trend labs (3) Left upper lobe pneumonia: Qualifiers: Pneumonia type: due to unspecified organism Qualified Code(s): J18.9 - Pneumonia, unspecified organism Code(s): J18.9 - Pneumonia, unspecified organism Status: Acute Assessment and Plan: Chest xray shows cavitary mass left apex with satellite nodules (Infectious or inflammatory vs malignancy) Chest CT shows Loculated left apical mass with soft tissue rind measuring approximately 9.5 cm greatest dimension, empysema IV antibiotics de-escalated to p.o. 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 Emphysema type: unspecified Qualified Code(s): J43.9 - Emphysema, unspecified Code(s): J44.9 - Chronic obstructive pulmonary disease, unspecified Status: Chronic Assessment and Plan: Chest CT: severe emphysema noted Complaints of sputum changes, and amount Continue neb treatments Trend respiratory status seems to be an exacerbation Most like related to PNA (6) Tobacco abuse: Code(s): Z72.0 - Tobacco use Status: Chronic Assessment and Plan: Nicotine patch and gum ordered Smoking cessation education given (7) Macrocytic anemia: Code(s): D53.9 - Nutritional anemia, unspecified Status: Chronic Assessment and Plan: H/H 11.8/35.5, currently 10.1/30.9 Anemia labs iron 46, TIBC 283, % sat 16, Ferritin 236, B12 477, Folate 9.8 Continue to trend labs Transfuse as indicated of Hgb <7.0 (8) Transaminitis: Code(s): R74.01 - Elevation of levels of liver transaminase levels Status: Resolved Assessment and Plan: AST/ALT 141/40, currently 66/35 Continue to trend labs Hep panel in the am tomorrow Consider RUQ ultrasound (9) Severe protein-calorie malnutrition: Code(s): E43 - Unspecified severe protein-calorie malnutrition Status: Chronic Assessment and Plan: Meets criteria with unintentional weight loss, skipping meals, lack of appetite Dietary consulted Supplements added Subjective Date/time seen: 03/21/23 13:58 Interval history: Patient up to the chair. He continues ordered PT and OT. Awaiting for auth to go through. Review of Systems Review of Systems: All systems reviewed & are unremarkable except as noted in HPI and bel
[2023-03-21 14:00] VITALS: BP 125/75; PULSE 91; RESP 18; TEMP 36.4; O2SAT 95
--- NOTE | 2023-03-21 14:55 | P.DS_ITS ---
DS: Admitting Diagnosis Discharge Date 03/21/23 Admitting Diagnosis Pneumonia, fall, rhabdomyolysis DS: Discharge Diagnosis Discharge Diagnosis (1) Fall: Qualifiers: Encounter type: initial encounter Qualified Code(s): W19.XXXA - Unspecified fall, initial encounter Code(s): W19.XXXA - Unspecified fall, initial encounter Status: Acute Assessment and Plan: * Presented for evaluation after a ground level fall * Notable left upper extremity swelling, no acute fractures noted per xray * Noted to be on the ground for >24 hours * Chronic left sided weakness related to old stroke * Fall precautions * PT/OT ordered (2) Rhabdomyolysis: Qualifiers: Rhabdomyolysis type: traumatic Encounter type: initial encounter Qualified Code(s): T79.6XXA - Traumatic ischemia of muscle, initial encounter Code(s): M62.82 - Rhabdomyolysis Status: Resolved Assessment and Plan: * Related to fall * On ground for roughly 24 hours * CK elevated at 4829 down to 4336, now 725 * IV fluids continued at 125 ml/hr * BUN/Cr stable at 21/1.00, currently 12/0.90 * Continue to trend labs (3) Left upper lobe pneumonia: Qualifiers: Pneumonia type: due to unspecified organism Qualified Code(s): J18.9 - Pneumonia, unspecified organism Code(s): J18.9 - Pneumonia, unspecified organism Status: Acute Assessment and Plan: * Chest xray shows cavitary mass left apex with satellite nodules (Infectious or inflammatory vs malignancy) * Chest CT shows Loculated left apical mass with soft tissue rind measuring approximately 9.5 cm greatest dimension, empysema * IV antibiotics de-escalated to p.o. 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 Emphysema type: unspecified Qualified Code(s): J43.9 - Emphysema, unspecified Code(s): J44.9 - Chronic obstructive pulmonary disease, unspecified Status: Chronic Assessment and Plan: * Chest CT: severe emphysema noted * Complaints of sputum changes, and amount * Continue neb treatments * Trend respiratory status * seems to be an exacerbation * Most like related to PNA (6) Tobacco abuse: Code(s): Z72.0 - Tobacco use Status: Chronic Assessment and Plan: * Nicotine patch and gum ordered * Smoking cessation education given (7) Macrocytic anemia: Code(s): D53.9 - Nutritional anemia, unspecified Status: Chronic Assessment and Plan: * H/H 11.8/35.5, currently 10.1/30.9 * Anemia labs iron 46, TIBC 283, % sat 16, Ferritin 236, B12 477, Folate 9.8 * Continue to trend labs * Transfuse as indicated of Hgb <7.0 (8) Transaminitis: Code(s): R74.01 - Elevation of levels of liver transaminase levels Status: Resolved Assessment and Plan: * AST/ALT 141/40, currently 66/35
--- NOTE | 2023-03-21 14:55 | PM.DS ---
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 Fall precautions PT/OT ordered (2) Rhabdomyolysis: Qualifiers: Rhabdomyolysis type: traumatic Encounter type: initial encounter Qualified Code(s): T79.6XXA - Traumatic ischemia of muscle, initial encounter Code(s): M62.82 - Rhabdomyolysis Status: Resolved Assessment and Plan: Related to fall On ground for roughly 24 hours CK elevated at 4829 down to 4336, now 725 IV fluids continued at 125 ml/hr BUN/Cr stable at 21/1.00, currently 12/0.90 Continue to trend labs (3) Left upper lobe pneumonia: Qualifiers: Pneumonia type: due to unspecified organism Qualified Code(s): J18.9 - Pneumonia, unspecified organism Code(s): J18.9 - Pneumonia, unspecified organism Status: Acute Assessment and Plan: Chest xray shows cavitary mass left apex with satellite nodules (Infectious or inflammatory vs malignancy) Chest CT shows Loculated left apical mass with soft tissue rind measuring approximately 9.5 cm greatest dimension, empysema IV antibiotics de-escalated to p.o. 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 Emphysema type: unspecified Qualified Code(s): J43.9 - Emphysema, unspecified Code(s): J44.9 - Chronic obstructive pulmonary disease, unspecified Status: Chronic Assessment and Plan: Chest CT: severe emphysema noted Complaints of sputum changes, and amount Continue neb treatments Trend respiratory status seems to be an exacerbation Most like related to PNA (6) Tobacco abuse: Code(s): Z72.0 - Tobacco use Status: Chronic Assessment and Plan: Nicotine patch and gum ordered Smoking cessation education given (7) Macrocytic anemia: Code(s): D53.9 - Nutritional anemia, unspecified Status: Chronic Assessment and Plan: H/H 11.8/35.5, currently 10.1/30.9 Anemia labs iron 46, TIBC 283, % sat 16, Ferritin 236, B12 477, Folate 9.8 Continue to trend labs Transfuse as indicated of Hgb <7.0 (8) Transaminitis: Code(s): R74.01 - Elevation of levels of liver transaminase levels Status: Resolved Assessment and Plan: AST/ALT 141/40, currently 66/35 Continue to trend labs Hep panel in the am tomorrow Consider RUQ ultrasound (9) Severe protein-calorie malnutrition: Code(s): E43 - Unspecified severe protein-calorie malnutrition Status: Chronic Assessment and Plan: Meets criteria with unintentional weight loss, skipping meals, lack of appetite Dietary consulted Supplements added DS: Summary Hospital Course Hospital Course: 82-year-old male with a history of tobacco abuse, COPD, depression and arthritis who presented to the ED for evaluation after a fall. Patient li
[2023-03-21 19:34] VITALS: BP 133/85; PULSE 81; RESP 16; TEMP 36.6; O2SAT 96
[2023-03-21 20:00] VITALS: PULSE 81; RESP 16; O2SAT 96
== END 2023-03-21 20:45 | DRG 564 ==
LOC: ANHED 14:41 → ANH2MED 17:10
PROVIDERS: Nurse Practitioner; Physician Assistant; Admitting Provider Chiropractor; Emergency Provider Emergency Medicine; PCP Family Medicine; Visit Provider Internal Medicine Critical Care Medicine
DX: T79.6XXA Traumatic ischemia of muscle, initial encounter (principal); E43 Unspecified severe protein-calorie malnutrition; J18.9 Pneumonia, unspecified organism; I69.354 Hemiplegia and hemiparesis following cerebral infarction affecting left non-dominant side; Z68.1 Body mass index [BMI] 19.9 or less, adult; W18.30XA Fall on same level, unspecified, initial encounter; I69.398 Other sequelae of cerebral infarction; R53.81 Other malaise; J43.9 Emphysema, unspecified; F17.210 Nicotine dependence, cigarettes, uncomplicated; D53.9 Nutritional anemia, unspecified; R74.01 Elevation of levels of liver transaminase levels; F32.A Depression, unspecified; M19.90 Unspecified osteoarthritis, unspecified site; H40.1113 Primary open-angle glaucoma, right eye, severe stage
CPT/HCPCS: 36415; 70450; 71045; 71260; 72125; 73080; 73090; 73130; 80053; 81001; 82550; 82607; 82728; 82746; 83540; 83550; 83690; 83735; 84443; 85025; 85027; 85610; 85730; 86738; 87449; 87899; 93971; 94640; 96361; 96365; 96367; 96376; 97110; 97161; 97166; 97530; 97535; 99285; A9270; G0378; J0456; J0696; J2930; J7030; J7512; Q9967

== ENCOUNTER 2023-08-30 15:59 | Inpatient (IN) | payer MEDICARE, SELFPAY ==
[2023-08-30] VITALS (34 sets, daily range): BP systolic 103–177; BP diastolic 66–97; PULSE 88–120; RESP 15–26; TEMP 36.6–37.4; O2SAT 93–100
--- NOTE | ~2023-08-30 | CT_ITS ---
EXAMINATION: CT brain wo con DATE: 08/30/2023 19:39 INDICATION: Altered mental status. Confusion. TECHNIQUE: Computed tomography (CT) of the head was performed without intravenous contrast. The dose- length product was 983.67 mGy-cm. Automated exposure control and iterative reconstruction technique w ere employed. COMPARISON: CT dated 03/16/2023 FINDINGS: Chronic right thalamic infarct. Generalized atrophy. There are scattered moderate periventr icular and subcortical white matter changes, most likely related to small vessel ischemic disease (mi croangiopathy). No acute infarction, hemorrhage, mass or mass effect. No ventriculomegaly or midline shift. Paranasal sinuses and mastoids are pneumatized. IMPRESSION: 1. No acute intracranial abnormality. Reviewed, dictated and finalized at location A. OGRAMMETRIC COMPILATION SPECIALIST
--- NOTE | ~2023-08-30 | CT_ITS ---
EXAMINATION: CTA chest PE protocol DATE: 08/30/2023 21:01 GOVERNMENT OPERATIONS CONSULTANT INDICATION: Hypoxia. Elevated d-dimer. TECHNIQUE: Computed tomographic angiography (CTA) of the chest was performed with 100 mL Omnipaque-35 0 intravenous contrast. The dose-length product was 340.34 mGy-cm. Maximum intensity projection 3D-re constructions of the aorta and other arteries were constructed by the technologist on a separate work station. Automated exposure control and iterative reconstruction technique were employed. COMPARISON: 03/16/2023 FINDINGS: Enlarged pulmonary arteries consistent with pulmonary arterial hypertension. No evidence fo r pulmonary embolism. Evaluation of the lower lobe subsegmental pulmonary arteries limited by motion. Fusiform descending thoracic aortic aneurysm measuring up to 4 cm. There is scoliosis. Moderate thor acic spondylosis. Severe emphysema. Persistent cavitary mass left apex with decreased soft tissue com ponent. No pneumothorax. No thoracic lymphadenopathy. IMPRESSION: 1. Persistent cavitary left apical mass with decreased soft tissue component compared with prior exam ination, possibly improving atypical infection. 2: No central pulmonary embolism. 3: Coronary arterial hypertension. 4: Fusiform ascending thoracic aortic aneurysm measuring 4 cm. 5: Severe emphysema. Reviewed, dictated and finalized at location A. RNMENT OPERATIONS CONSULTANT IMPRESSION: 1. Persistent cavitary left apical mass with decreased soft tissue component co mpared with prior examination, possibly improving atypical infection. 2: No central pulmonary embolism. 3: Coronary arterial hypertension. 4: Fusiform ascending thoracic aortic aneurysm measuring 4 cm. 5: Severe emphysema.
--- NOTE | ~2023-08-30 | XR_ITS ---
XR chest 2V 08/30/2023 17:01 Indication: Tachycardia. Hypoxia. Procedure: 2 view chest Comparison: Comparison to multiple prior studies sequentially, with oldest reviewed study dated 02/05. Findings: There is chronic scarring with cavitary change in the left apex. There is emphysema. No acu te focal pneumonia, edema, significant effusion or pneumothorax. Impression: 1: No acute cardiopulmonary disease. 2: Chronic scarring with cavitary change left apex. Reviewed, dictated and finalized at location A. PARTS COUNTER PERSON Impression: 1: No acute cardiopulmonary disease. 2: Chronic scarring with cavitary change left apex.
--- NOTE | ~2023-08-30 | XR_ITS ---
Portable chest x-ray Comparison: 08/30/2023 Clinical History: Shortness of breath Findings: There is probable COPD with stable left apical scarring and bullous change versus other ca vitary lesion. Probable mild right apical scarring. Cardiomediastinal silhouette is stable. Bones an d soft tissues are unremarkable. Impression: No change from prior exam. Stable probable COPD with biapical scarring and left apical bullous change versus other cavitary lesi on. Reviewed, dictated and finalized at location . ING STATION ATTENDANT Impression: No change from prior exam. Stable probable COPD with biapical scarring and left apical bullous change vers us other cavitary lesion.
--- NOTE | 2023-08-30 16:43 | ED.FEVER ---
HPI - Fever General Chief Complaint: Fever Stated Complaint: weakness, fever Time Seen by Provider: 08/30/23 16:10 Source: patient and EMS (reported to RN) Mode of arrival: EMS History of Present Illness HPI Narrative: This is a 82 yo male who presents with reported fever and weakness. EMS reported to RN that family called due to concern for fever and EMS noted a temperature of 104F. They expressed concern to RN that the living conditions were deplorable. It is believed that patient lives alone and family checks on him. Per RN, patient initially arrived soiled, covered in caked feces. He has been cleaned up by nursing before my assessment but they note a stage 2 decubitus ulcer on right hip. She notes when he was last admitted to the hospital he was offered placement but it was refused. At baseline, he is A&O x2 by report. Difficult to obtain a history from patient. He states he has a history of COPD but is not on oxygen at home. He denies any shortness of breath, chest pain, or abdominal pain. He notes he has back pain when he moves but this is his only complaint. Related Data Home Medications Medication Instructions Recorded Confirmed Unable to Obtain Home Medications 08/31/23 08/31/23 Allergies Allergy/AdvReac Type Severity Reaction Status Date / Time No Known Allergies Allergy Verified 08/31/23 00:16 [facility] Past Medical History Medical History COPD with asthma Depression 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 Primary open angle glaucoma of right eye, severe stage Smoker Surgical History Surgical History (Updated 08/31/23 @ 01:33 by Candy Levi DO) H/O shoulder surgery History of elbow surgery Status post cataract extraction of both eyes with insertion of intraocular lens Family History Family History Grandparent No problems noted. Mother Lung cancer Father Cancer of kidney Social History Social History Social History: Surrogate medical decision maker: Marcio Gonzalez, brother. Code status: Full code. Smoking packs per day: 0.5 Smoking cigarettes per day: 10.0 Years smoked: 77 Smoking pack-years: 38.50 Smoking status: Current every day smoker Tobacco type: cigarettes Second hand tobacco smoke exposure: Yes Alcohol intake: never Substance use: never Substance use type: does not use Lack of Transportation: YES Lack of Food: Never True Current Housing: I Have Housing Concerned About Future Housing: No Difficulty Paying Gas/Electric Bills: No Difficulty Paying for Meds: No Currently Unemployed: No Education: Grade School Difficulty w/ Childcare or Family Care: No Additional living arrangements comments: The patient lives in his own home in [place]. Additional occupation/education comments: Retired from the [employer]. Spiritual care concerns: No Exam Narrative: GENERAL: chronically ill appearing, cachectic with bony prominences; but in no acute distress. HEAD: Normocephalic, atraumatic. EYES: Grossly normal. Non injected ENT: Nares clear, no rhinorrhea or epistaxis. Tacky mucous membranes NECK: Supple. CHEST: Clear to auscultation. No respiratory distress. HEART: Tachycardic rate and rhythm. ABDOMEN: Soft, nontender, nondistended. EXTREMITIES: Warm and well perfused No edema. SKIN: Warm, dry, no rash on exposed areas. NEURO: No focal deficits. Alert but memory not intact to health history. PSYCH: Normal mood and affect. Course Vital Signs Vital signs: Vital Signs Temperature 99.4 F 08/30/23 16:00 Pulse Rate 120 H 08/30/23 16:00 Respiratory Rate 24 H 08/30/23 16:00 Blood Pressure 177/79 H 08/30/23 16:00 Pulse Oximetry 100 08/30/23 16:00 Oxygen Delivery Nasal Cannula 08/30/23 16:00 Oxygen Flow Rate 2 08/30/23 16:00 Temperature 97.8 F 08/31/23 21:43 P
--- NOTE | 2023-08-30 16:45 | ECG_ITS ---
Measurements Intervals [place] Rate: 104 P: 86 CA: 148 QRS: 100 QRSD: 129 T: 83 QT: 363 QTc: 479 Interpretive Statements SINUS TACHYCARDIA BASELINE ARTIFACT POSSIBLE LEFT ATRIAL ENLARGEMENT [-0.1mV P-WAVE IN V1/V2] RIGHT BUNDLE BRANCH BLOCK COMPARED TO ECG 02/21/2022 17:05:54 ABNORMAL ECG SINUS TACHYCARDIA NOW PRESENT Electronically Signed On 08-31-2023 11:49:53 NURSERY HELPER by Yusuf Wilkerson M.D.
[2023-08-30 16:57] LABS: Basophils Absolute Auto 0.1 K/mm3 (0.0-0.1); Basophils Percent Auto 0.4 % (0.2-1.2); Eosinophils Percent Auto 0.1 % (0-4.4); Hematocrit 37.9 % (42.0-52.0); Hemoglobin 12.4 g/dL (14.0-18.0); Immature Granulocyte Absolute 0.06 K/mm3 (0.00-0.031); Immature Granulocyte Percent A 0.5 % (0-0.5); Lymphocytes Absolute Auto 0.47 K/mm3 (0.9-3.2); Mean Corpuscular HGB Conc 32.7 g/dl (32-36); Mean Corpuscular Hemoglobin 34.4 pg (26-34); Mean Corpuscular Volume 105.3 fl (80-100); Mean Platelet Volume 9.9 fl (7.4-10.4); Monocytes Absolute Auto 0.8 K/mm3 (0.1-0.6); Monocytes Percent Auto 7.2 % (2.6-8.5); Neutrophils Absolute Auto 10.2 K/mm3 (1.3-6.7); Neutrophils Percent Auto 87.8 % (45.5-73.1); Platelet Count Result 250 k/mm3 (150-375); Red Cell Distribution Width 18.8 % (11.5-14.5); White Blood Count 11.6 K/mm3 (4.5-10.0)
[2023-08-30 17:08] LABS: Lactic Acid Reflex 1.6 mmol/L (0.7-2.0)
[2023-08-30 17:10] LABS: Alanine Aminotransferase 12 U/L (6-50); Albumin Level 3.9 g/dL (3.5-5.1); Alkaline Phosphatase 91 U/L (38-126); Anion Gap 10 mmol/L (8-16); Aspartate Amino Transferase 23 U/L (17-59); Bilirubin,Total 0.9 mg/dL (0.2-1.3); Blood Urea Nitrogen 14 mg/dL (9-20); CRP 2.4 mg/dL (<1.0); Calcium 8.5 mg/dL (8.4-10.2); Carbon Dioxide 20 mmol/L (22-30); Chloride 103 mmol/L (98-107); Estimated CRCL calculation 35 ml/min; Estimated Glomerular Filt Rate 58; Glucose 88 mg/dL (65-110); Potassium 4.3 mmol/L (3.4-5.0); Sodium 133 mmol/L (137-145)
[2023-08-30 17:15] LABS: Partial Thromboplastin Time 34.1 SECONDS (22.3-36.8)
[2023-08-30 17:18] LABS: Prothrombin Time 13.9 Seconds (11.1-14.7)
[2023-08-30 17:37] LABS: Anisocytosis 1+ (NORMAL); Macrocytosis 1+ (NORMAL); Ovalocytes 1+ (NORMAL); Platelet Estimate Adequate (Adequate); Schistocytes None Seen (NORMAL)
[2023-08-30 17:40] LABS: Appearance Urine Clear (Clear); Bacteria Urine None Seen /hpf; Bilirubin Urine Negative (Negative); Blood Urine 2+ (Negative); Color Urine Yellow (Yellow); Glucose Urine UA Negative (Negative); Ketones Urine 1+ mg/dL (Negative); Leukocyte Esterase Ur Negative LEU/UL (Negative); Nitrate Urine Negative (Negative); Non Pathogenic Casts 0-2; Protein Urine 1+ mg/dL (Negative); Specific Grav Ur 1.016 (1.001-1.035); Squamous Epithelial Cell Urine None seen /hpf (Few); WBC Urine 0-5 /hpf
[2023-08-30 17:47] LABS: Add Urine Microscopic? YES
[2023-08-30] MEDS: SODIUM CHLORIDE 0.9% IV 2,000 ML 999 ML (17:50)
--- NOTE | 2023-08-30 19:26 | PC.NURSE ---
Report received from RICH Guzmán. Assumed care of patient at this time. Patient being taken to CT via stretcher.
[2023-08-30 19:36] LABS: D Dimer 1.76 ug/mL (<0.48)
[2023-08-30 20:22] LABS: NT Pro B Type Natriuretic Pept 2580 pg/mL (19.9-100)
[2023-08-30 20:48] LABS: Influenza A QL RT-PCR Negative (Negative); Influenza B QL RT-PCR Negative (Negative); SARS-CoV-2 RNA PCR Positive (Negative)
[2023-08-30 20:53] LABS: RSV RNA, RT-PCR Negative (Negative)
[2023-08-30] MEDS: DEXAMETHASONE 2 MG TABLET 6 MG PO (23:24)
[2023-08-30] MEDS: REMDESIVIR 200 MG/NS 250 ML 200 MG/250 ML BAG 250 MG IVPB (23:25)
[2023-08-31] VITALS (13 sets, daily range): BP systolic 129–151; BP diastolic 75–96; PULSE 50–114; RESP 16–20; TEMP 35.8–37.4; O2SAT 91–100; BMI 20.5
--- NOTE | 2023-08-31 | ADMGEN ---
This patient, Kyle Gonzalez, was admitted to Medical Room 241-01. Patient/family oriented to hospital policies and general routines including ID bracelet, bed and alarms, visiting hours, pain management, procedures, bathroom and other care routines, personal items, smoking policy, room service/diet, and visiting hours. Information on how to activate the Rapid Response Team has been discussed. Patient/Family are encouraged to report perceived risks to care and to ask questions if they do not understand what they are told or what they should do.
[2023-08-31] MEDS: LACTATED RINGERS 1,000 ML 125 ML IV CONT (01:14)
--- NOTE | 2023-08-31 01:23 | PM.IMHP ---
H&P: HPI History of Present Illness Date/Time: 08/31/23 00:40 Chief Complaint: Fever Narrative: 82-year-old male with a past medical history of COPD, CVA, glaucoma and chronic tobacco use who presented to the ER from home via EMS due to fever. The patient was evidently found living in deplorable conditions. The patient was covered with stool on arrival to the ER. The patient was only alert oriented x2 on arrival to the ER. At the time my evaluation the patient was oriented to person and month but not the year or current situation. The patient had no specific complaints. When I asked the patient where he was currently at a could not provide me with reasonable answer. When I tried to tell the patient that he was admitted for COVID in would be staying in the hospital for day or 2 because he needs oxygen the patient started talking about driving a camper trailer. He was demonstrating a significant intermittent confusion. On arrival to the medical floor the patient was satting 95% on 2 L nasal cannula. Reportedly patient had been hypoxic in the ER although this was not documented. The patient states that he does not use oxygen at home. Although the patient was reported to have a fever at home is T-max here has been 99.4. Patient was found to be positive for COVID in the ER. Patient's D-dimer was elevated in the ER and subsequently CTA was performed to rule out pulmonary embolism which CTA demonstrated persistent cavitary left apical mass with decreased soft tissue component compared to prior exam per possibly improving atypical infection. Comparison study was performed in March 16, 2023. Severe emphysema was noted and fusiform ascending thoracic aortic aneurysm measuring 4 cm also noted. Review of Systems Review of Systems: ROS unobtainable: Yes unobtainable due to mental status [facility] Past Medical History Medical History COPD with asthma Depression 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 Primary open angle glaucoma of right eye, severe stage Smoker Surgical History Surgical History (Updated 08/31/23 @ 01:33 by Candy Levi DO) H/O shoulder surgery History of elbow surgery Status post cataract extraction of both eyes with insertion of intraocular lens Family History Family History Grandparent No problems noted. Mother Lung cancer Father Cancer of kidney Social History Social History (Reviewed 08/31/23 @ 01:34 by CARLA Cabral Social History: Surrogate medical decision maker: Marcio Gonzalez, brother. Code status: Full code. Smoking packs per day: 0.5 Smoking cigarettes per day: 10.0 Years smoked: 77 Smoking pack-years: 38.50 Smoking status: Current every day smoker Tobacco type: cigarettes Second hand tobacco smoke exposure: Yes Alcohol intake: never Substance use: never Substance use type: does not use Lack of Transportation: YES Lack of Food: Never True Current Housing: I Have Housing Concerned About Future Housing: No Difficulty Paying Gas/Electric Bills: No Difficulty Paying for Meds: No Currently Unemployed: No Education: Grade School Difficulty w/ Childcare or Family Care: No Additional living arrangements comments: The patient lives in his own home in [place]. Additional occupation/education comments: Retired from the [employer]. Spiritual care concerns: No Meds Home Medications and Allergies Home Medications Medication Instructions Recorded Confirmed Type No Home Medications 08/31/23 08/31/23 History Allergies Allergy/AdvReac Type Severity Reaction Status Date / Time No Known Allergies Allergy Verified 08/31/23 00:16 Vital Signs Vital Signs - 24 hr 08/30/23 16:00 08/30/23 16:34 08/30/23 17:02 Temperature 99.4 F Pulse Rate 120 H 116 H 109 H Respiratory Rate 24 H 24 H 24 H Blood Pressure 177/79 H 177/95 H 131/95 H Pulse
[2023-08-31] MEDS: ALBUTEROL SULFATE (*SP) INHALER 2 PUFF INHALATION ×3 (02:17→21:21)
[2023-08-31 04:59] LABS: Hematocrit 37.9 % (42.0-52.0); Hemoglobin 12.3 g/dL (14.0-18.0); Mean Corpuscular HGB Conc 32.5 g/dl (32-36); Mean Corpuscular Hemoglobin 34.1 pg (26-34); Platelet Count Result 243 k/mm3 (150-375); Red Blood Count 3.61 M/mm3 (4.6-6.20); Red Cell Distribution Width 18.6 % (11.5-14.5); White Blood Count 6.5 K/mm3 (4.5-10.0)
[2023-08-31 05:25] LABS: Anion Gap 10 mmol/L (8-16); Blood Urea Nitrogen 13 mg/dL (9-20); Calcium 8.6 mg/dL (8.4-10.2); Carbon Dioxide 21 mmol/L (22-30); Chloride 101 mmol/L (98-107); Estimated CRCL calculation 38 ml/min; Estimated Glomerular Filt Rate > 60; Glucose 89 mg/dL (65-110); Potassium 4.2 mmol/L (3.4-5.0); Sodium 132 mmol/L (137-145)
[2023-08-31 05:56] LABS: Thyroid Stimulating Hormone Reflex 0.753 uIU/mL (0.465-4.68)
[2023-08-31] MEDS: FERROUS SULFATE 325 MG TABLET DR PO (08:24)
[2023-08-31] MEDS: NICOTINE (*PBKC) 14 MG PATCH 1 PATCH TRANSDERM (08:24)
--- NOTE | 2023-08-31 10:36 | PM.IMPN ---
Progress Note: A&P Assessment and Plan (1) COVID-19: Code(s): U07.1 - COVID-19 Status: Acute Assessment and Plan: The patient has COVID with associated hypoxia. Hypoxia is likely multifactorial given chronic COPD/asthma and continued tobacco use. Patient is not having significant wheezing but does have significant decreased air movement. Will place patient on Decadron IV daily and Remdesivir. Will wean oxygen as tolerated. 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 (5) Confusion associated with infection: Code(s): B99.9 - Unspecified infectious disease; R41.0 - Disorientation, unspecified Status: Acute Assessment and Plan: Patient does have confusion. Is on certain if the confusion is due to acute infection or patient may have some component of underlying dementia not previously diagnosed. Will check TSH in vitamin-D deficiencies as discussed above. 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 Patient had normal B12 and folic acid level in February. His iron studies at that time did demonstrate evidence of iron deficiency anemia with decreased % saturation and iron level. Will start the patient on ferrous sulfate 1 tab p.o. daily. Will also check repeat B12 and folic acid level as well as methylmalonic acid. Although I suspect that the megaloblastic anemia is most likely due to production issue and less likely vitamin-D deficiency. (7) Hyponatremia: Code(s): E87.1 - Hypo-osmolality and hyponatremia Status: Acute Assessment and Plan: The patient does have some mild hyponatremia noted on labs. The patient did receive 30 mL/kilos bolus in the ER and IV fluids were continued on arrival to the floor. However will decrease the LR to 75 mL an hour. Plan Will request PT and OT evaluation for assessment of placement on discharge, unsafe living conditions suspected in ER. ER provider has stated that they have called the Division of Aging and filed the report. DVT prophylaxis with SCDs GI prophylaxis not indicated Code status full code Subjective Date/time seen: 08/31/23 10:36 Interval history: 82-year-old male with a past medical history of COPD, CVA, glaucoma and chronic tobacco use who presented to the ER from home via EMS due to fever.? No overnight events noted. No chest pain. No nausea, vomiting or diarrhea. No fevers or chills. Still with SOB, cough. Review of Systems Review of Systems: 12 point review of systems was assessed and was negative except as noted in the HPI Exam Narrative: General: No acute distress, alert and oriented per baseline HEENT: Atraumatic, normocephalic, mucous membranes moist CV: Regular rate and rhythm, S1, S2 Lungs: Coarse breath sounds throughout, diminished at bases, no wheeze Abdomen: Soft, nontender, nondistended Extremities: Normal to inspection Skin: No rashes noted, no lesions or wounds seen Psych: Euthymic, normal affect Objective Data Vital Signs Vital Signs: Vital Signs - 24 hr 08/30/23 16:00 08/30/23 16:34 08/30/23 17:02 Temperature 99.4 F Pulse Rate 120 H 116 H 109 H Respiratory
[2023-08-31] MEDS: LACTATED RINGERS 1,000 ML 75 ML IV CONT (12:32)
[2023-08-31] MEDS: REMDESIVIR 100 MG/NS 250 ML 100 MG/250 ML BAG 250 MG IVPB (21:09)
[2023-09-01] VITALS (12 sets, daily range): BP systolic 119–150; BP diastolic 56–87; PULSE 71–106; RESP 16–20; TEMP 36.4–36.6; O2SAT 97–100
[2023-09-01] MEDS: LACTATED RINGERS 1,000 ML 75 ML IV CONT (02:23)
[2023-09-01] MEDS: ALBUTEROL SULFATE (*SP) INHALER 2 PUFF INHALATION ×3 (03:05→20:44)
[2023-09-01] MEDS: FERROUS SULFATE 325 MG TABLET DR PO (09:30)
[2023-09-01] MEDS: NICOTINE (*PBKC) 14 MG PATCH 1 PATCH TRANSDERM (09:30)
--- NOTE | 2023-09-01 13:51 | PM.IMPN ---
Progress Note: A&P Assessment and Plan (1) COVID-19: Code(s): U07.1 - COVID-19 Status: Acute Assessment and Plan: The patient has COVID with associated hypoxia. Hypoxia is likely multifactorial given chronic COPD/asthma and continued tobacco use. Patient is not having significant wheezing but does have significant decreased air movement. Will place patient on Decadron IV daily and Remdesivir. Will wean oxygen as tolerated. 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 (5) Confusion associated with infection: Code(s): B99.9 - Unspecified infectious disease; R41.0 - Disorientation, unspecified Status: Acute Assessment and Plan: Patient does have confusion. Is on certain if the confusion is due to acute infection or patient may have some component of underlying dementia not previously diagnosed. Will check TSH in vitamin-D deficiencies as discussed above. 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 Patient had normal B12 and folic acid level in February. His iron studies at that time did demonstrate evidence of iron deficiency anemia with decreased % saturation and iron level. Will start the patient on ferrous sulfate 1 tab p.o. daily. Will also check repeat B12 and folic acid level as well as methylmalonic acid. Although I suspect that the megaloblastic anemia is most likely due to production issue and less likely vitamin-D deficiency. (7) Hyponatremia: Code(s): E87.1 - Hypo-osmolality and hyponatremia Status: Acute Assessment and Plan: The patient does have some mild hyponatremia noted on labs. The patient did receive 30 mL/kilos bolus in the ER and IV fluids were continued on arrival to the floor. However will decrease the LR to 75 mL an hour. 09/01: resolved, d/c IVF Plan Will request PT and OT evaluation for assessment of placement on discharge, unsafe living conditions suspected in ER. ER provider has stated that they have called the Division of Aging and filed the report. DVT prophylaxis with SCDs GI prophylaxis not indicated Code status full code Subjective Date/time seen: 09/01/23 13:51 Interval history: 82-year-old male with a past medical history of COPD, CVA, glaucoma and chronic tobacco use who presented to the ER from home via EMS due to fever.? No overnight events noted. No chest pain. No nausea, vomiting or diarrhea. No fevers or chills. Patient states he feels much better. He would like to stay 1 more day and be discharged tomorrow. Review of Systems Review of Systems: 12 point review of systems was assessed and was negative except as noted in the HPI Exam Narrative: General: No acute distress, alert and oriented per baseline HEENT: Atraumatic, normocephalic, mucous membranes moist CV: Regular rate and rhythm, S1, S2 Lungs: Coarse breath sounds throughout, diminished at bases, no wheeze Abdomen: Soft, nontender, nondistended Extremities: Normal to inspection Skin: No rashes noted, no lesions or wounds seen Psych: Euthymic, normal affect Objective Data Vital Signs Vital Signs: Vital Signs
--- NOTE | 2023-09-01 17:02 | PCRCNOTE ---
Window of time for administration has passed. See next scheduled administration.
[2023-09-01] MEDS: REMDESIVIR 100 MG/NS 250 ML 100 MG/250 ML BAG 250 MG IVPB (21:04)
[2023-09-02] VITALS (13 sets, daily range): BP systolic 101–130; BP diastolic 69–74; PULSE 74–105; RESP 16–19; TEMP 36.1–36.8; O2SAT 98–100
[2023-09-02] MEDS: ALBUTEROL SULFATE (*SP) INHALER 2 PUFF INHALATION ×4 (02:07→20:22)
[2023-09-02 06:12] LABS: INR 1.2; Prothrombin Time 15.2 Seconds (11.1-14.7)
[2023-09-02 06:14] LABS: Alanine Aminotransferase 22 U/L (6-50); Albumin Level 3.6 g/dL (3.5-5.1); Alkaline Phosphatase 81 U/L (38-126); Aspartate Amino Transferase 65 U/L (17-59); Bilirubin,Total 0.6 mg/dL (0.2-1.3)
[2023-09-02] MEDS: FERROUS SULFATE 325 MG TABLET DR PO (08:37)
[2023-09-02] MEDS: NICOTINE (*PBKC) 14 MG PATCH 1 PATCH TRANSDERM (08:37)
--- NOTE | 2023-09-02 10:00 | PCOTNOTE ---
Patient unable to be seen at this time. Patient having a chest x-ray performed in the room. Will check back later.
[2023-09-02 10:41] LABS: Alanine Aminotransferase 22 U/L (6-50); Albumin Level 3.5 g/dL (3.5-5.1); Alkaline Phosphatase 78 U/L (38-126); Anion Gap 6 mmol/L (8-16); Aspartate Amino Transferase 68 U/L (17-59); Bilirubin,Total 0.6 mg/dL (0.2-1.3); Blood Urea Nitrogen 29 mg/dL (9-20); Carbon Dioxide 28 mmol/L (22-30); Chloride 100 mmol/L (98-107); Estimated CRCL calculation 30 ml/min; Estimated Glomerular Filt Rate 48; Glucose 122 mg/dL (65-110); Potassium 5.5 mmol/L (3.4-5.0); Sodium 134 mmol/L (137-145)
[2023-09-02 11:12] LABS: Hematocrit 37.6 % (42.0-52.0); Hemoglobin 12.2 g/dL (14.0-18.0); Immature Granulocyte Absolute 0.02 K/mm3 (0.00-0.031); Immature Granulocyte Percent A 0.6 % (0-0.5); Lymphocytes Percent Auto 23.1 % (18.3-44.2); Mean Corpuscular HGB Conc 32.4 g/dl (32-36); Mean Corpuscular Hemoglobin 33.8 pg (26-34); Mean Corpuscular Volume 104.2 fl (80-100); Monocytes Absolute Auto 0.2 K/mm3 (0.1-0.6); Monocytes Percent Auto 5.8 % (2.6-8.5); Neutrophils Absolute Auto 2.4 K/mm3 (1.3-6.7); Neutrophils Percent Auto 70.5 % (45.5-73.1); Nucleated Red Blood Cells Perc 0.6 % (0.0-0.2); Platelet Count Result 222 k/mm3 (150-375); Red Blood Count 3.61 M/mm3 (4.6-6.20); White Blood Count 3.5 K/mm3 (4.5-10.0)
--- NOTE | 2023-09-02 13:26 | PM.IMPN ---
Progress Note: A&P Assessment and Plan (1) COVID-19: Code(s): U07.1 - COVID-19 Status: Acute Assessment and Plan: The patient has COVID with associated hypoxia. Hypoxia is likely multifactorial given chronic COPD/asthma and continued tobacco use. Patient is not having significant wheezing but does have significant decreased air movement. Will place patient on Decadron IV daily and Remdesivir. Will wean oxygen as tolerated. 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 (5) Confusion associated with infection: Code(s): B99.9 - Unspecified infectious disease; R41.0 - Disorientation, unspecified Status: Acute Assessment and Plan: Patient does have confusion. Is on certain if the confusion is due to acute infection or patient may have some component of underlying dementia not previously diagnosed. Will check TSH in vitamin-D deficiencies as discussed above. 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 Patient had normal B12 and folic acid level in February. His iron studies at that time did demonstrate evidence of iron deficiency anemia with decreased % saturation and iron level. Will start the patient on ferrous sulfate 1 tab p.o. daily. Will also check repeat B12 and folic acid level as well as methylmalonic acid. Although I suspect that the megaloblastic anemia is most likely due to production issue and less likely vitamin-D deficiency. (7) Hyponatremia: Code(s): E87.1 - Hypo-osmolality and hyponatremia Status: Acute Assessment and Plan: The patient does have some mild hyponatremia noted on labs. The patient did receive 30 mL/kilos bolus in the ER and IV fluids were continued on arrival to the floor. However will decrease the LR to 75 mL an hour. 09/01: resolved, d/c IVF 09/02: DEBRA developed off IVF, restarted today, monitor closely (8) Acute kidney injury: Code(s): N17.9 - Acute kidney failure, unspecified Status: Acute Assessment and Plan: 09/02: developed off IVF, likely prerenal due to poor po intake, restart IVF and recheck Plan Will request PT and OT evaluation for assessment of placement on discharge, unsafe living conditions suspected in ER. ER provider has stated that they have called the Division of Aging and filed the report. DVT prophylaxis with SCDs GI prophylaxis not indicated Code status full code Subjective Date/time seen: 09/02/23 13:26 Interval history: 82-year-old male with a past medical history of COPD, CVA, glaucoma and chronic tobacco use who presented to the ER from home via EMS due to fever.? No overnight events noted. No chest pain. No nausea, vomiting or diarrhea. No fevers or chills. Patient states he feels much better. He would like to stay 1 more day and be discharged tomorrow. Review of Systems Review of Systems: 12 point review of systems was assessed and was negative except as noted in the HPI Exam Narrative: General: No acute distress, alert and oriented per baseline HEENT: Atraumatic, normocephalic, mucous membranes moist CV: Regular rate and rhythm, S1, S2 Lungs
[2023-09-02] MEDS: SODIUM CHLORIDE 0.9% IV 1,000 ML 75 ML IV CONT (14:20)
--- NOTE | 2023-09-02 14:35 | PCOTNOTE ---
Attempted to see Patient this afternoon. Patient angry at this time. Patient feels like the staff are stealing his things. Patient declined to participate in any activities at this time. RN notified and is aware.
[2023-09-02 18:32] LABS: Methylmalonic Acid 933 nmol/L (87-318)
[2023-09-02] MEDS: REMDESIVIR 100 MG/NS 250 ML 100 MG/250 ML BAG 250 MG IVPB (20:38)
[2023-09-03] VITALS (9 sets, daily range): BP systolic 119–136; BP diastolic 67–86; PULSE 69–106; RESP 16–18; TEMP 36.1–36.6; O2SAT 91–100
[2023-09-03] MEDS: SODIUM CHLORIDE 0.9% IV 1,000 ML 75 ML IV CONT (05:32)
[2023-09-03 08:14] LABS: Albumin Level 3.3 g/dL (3.5-5.1); Anion Gap 5 mmol/L (8-16); Blood Urea Nitrogen 24 mg/dL (9-20); Calcium 8.4 mg/dL (8.4-10.2); Carbon Dioxide 24 mmol/L (22-30); Chloride 102 mmol/L (98-107); Estimated CRCL calculation 42 ml/min; Estimated Glomerular Filt Rate > 60; Glucose 105 mg/dL (65-110); Phosphorus 3.8 mg/dL (2.5-4.5); Potassium 4.7 mmol/L (3.4-5.0); Sodium 131 mmol/L (137-145)
[2023-09-03] MEDS: NICOTINE (*PBKC) 14 MG PATCH 1 PATCH TRANSDERM (08:40)
[2023-09-03] MEDS: FERROUS SULFATE 325 MG TABLET DR PO (08:41)
[2023-09-03] MEDS: ALBUTEROL SULFATE (*SP) INHALER 2 PUFF INHALATION ×3 (09:15→21:46)
--- NOTE | 2023-09-03 15:14 | PM.IMPN ---
Progress Note: A&P Assessment and Plan (1) COVID-19: Code(s): U07.1 - COVID-19 Status: Acute Assessment and Plan: The patient has COVID with associated hypoxia. Hypoxia is likely multifactorial given chronic COPD/asthma and continued tobacco use. Patient is not having significant wheezing but does have significant decreased air movement. He was placed on Decadron IV daily and Remdesivir. He was able to be weaned to room air. Continue remdesivir to complete a course. Discharge tomorrow. 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 Patient is confused and unable to understand the need to abstain from tobacco use. (5) Confusion associated with infection: Code(s): B99.9 - Unspecified infectious disease; R41.0 - Disorientation, unspecified Status: Acute Assessment and Plan: Patient does have confusion. Uncertain if the confusion is due to acute infection or component of underlying dementia not previously diagnosed. B12, folate and TSH levels normal. 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 Patient had normal B12 and folic acid levels. His iron studies at that time did demonstrate evidence of iron deficiency anemia with decreased % saturation and iron level. He was started on ferrous sulfate 1 tab p.o. daily. Methylmalonic acid level is elevated but of unclear significance. Add oral b12 (7) Hyponatremia: Code(s): E87.1 - Hypo-osmolality and hyponatremia Status: Acute Assessment and Plan: The patient does have some mild hyponatremia noted on labs. The patient did receive 30 mL/kilos bolus in the ER and IV fluids were continued on arrival to the floor. IVF stopped but developed DEBRA off IVF. He is eating sporadically. Stop IV fluids again (8) Acute kidney injury: Code(s): N17.9 - Acute kidney failure, unspecified Status: Acute Assessment and Plan: 09/02: developed off IVF, likely prerenal due to poor po intake, Cr back down again. Stop IV fluids Plan Will request PT and OT evaluation for assessment of placement on discharge, unsafe living conditions suspected in ER. ER provider has stated that they have called the Division of Aging and filed the report. DVT prophylaxis with SCDs GI prophylaxis not indicated Code status full code Subjective Date/time seen: 09/03/23 15:14 Interval history: 82-year-old male with a past medical history of COPD, CVA, glaucoma and chronic tobacco use who presented to the ER from home via EMS due to fever.? Assuming care. Chart reviewed. Patient is alert but confused. History is unreliable. Review of Systems Review of Systems: ROS unobtainable: Yes unobtainable due to mental status Exam Narrative: AF 97.0 119/67 106 16 100% ra Gen - NARD Chest -distant but clear breath sounds. CV - RRR S1/S2. Telemetry showing no significant dysrhythmias Abd - Soft, NT/ND, Positive BS Ext - No pedal edema Neuro - Alert, confused. Psych - Nml mood and affect Skin - Warm and dry Objective Data Vital Signs Vital Signs: Vital Signs - 24 hr 09/02/23 15:24 09/02/23 16:
[2023-09-03] MEDS: CALCIUM CARBONATE (TUMS) 500 MG (200 MG ELEMENTAL) PO (16:22)
[2023-09-03] MEDS: CYANOCOBALAMIN 1,000 MCG TABLET 1000 MCG PO (16:27)
[2023-09-03] MEDS: REMDESIVIR 100 MG/NS 250 ML 100 MG/250 ML BAG 250 MG IVPB (21:00)
[2023-09-04 03:32] VITALS: PULSE 72; RESP 16
[2023-09-04 05:17] LABS: Anion Gap 5 mmol/L (8-16); Blood Urea Nitrogen 22 mg/dL (9-20); Calcium 8.6 mg/dL (8.4-10.2); Carbon Dioxide 27 mmol/L (22-30); Chloride 100 mmol/L (98-107); Estimated CRCL calculation 42 ml/min; Estimated Glomerular Filt Rate > 60; Glucose 118 mg/dL (65-110); Potassium 4.6 mmol/L (3.4-5.0); Sodium 132 mmol/L (137-145)
[2023-09-04 05:18] VITALS: BP 149/94; PULSE 77; RESP 18; TEMP 36.4; O2SAT 98
[2023-09-04] MEDS: ALBUTEROL SULFATE (*SP) INHALER 2 PUFF INHALATION (09:26)
[2023-09-04] MEDS: NICOTINE (*PBKC) 14 MG PATCH 1 PATCH TRANSDERM (09:48)
[2023-09-04] MEDS: FERROUS SULFATE 325 MG TABLET DR PO (09:48)
[2023-09-04] MEDS: CYANOCOBALAMIN 1,000 MCG TABLET 1000 MCG PO (09:48)
--- NOTE | 2023-09-04 12:27 | PM.DS ---
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 Emphysema type: unspecified Qualified Code(s): J43.9 - Emphysema, unspecified Code(s): J44.9 - Chronic obstructive pulmonary disease, unspecified Status: Chronic (4) Tobacco abuse: Code(s): Z72.0 - Tobacco use Status: Chronic (5) Confusion associated with infection: Code(s): B99.9 - Unspecified infectious disease; R41.0 - Disorientation, unspecified Status: Acute (6) Megaloblastic anemia: Code(s): D53.1 - Other megaloblastic anemias, not elsewhere classified Status: Acute (7) Hyponatremia: Code(s): E87.1 - Hypo-osmolality and hyponatremia Status: Acute (8) Acute kidney injury: Code(s): N17.9 - Acute kidney failure, unspecified Status: Acute DS: Summary Hospital Course Reason for hospitalization: 82-year-old male with a past medical history of COPD, CVA, glaucoma and chronic tobacco use who presented to the ER from home via EMS due to fever.? Please see H&P for details. Hospital Course: The patient presents with fever and was COVID positive with associated hypoxia.? Hypoxia is likely multifactorial given chronic COPD/asthma and continued tobacco use.? CXR showing no acute findings but chronic scarring STORMY. CTA chest showing no PE but with enlarged pulmonary arteries, thoracic aortic aneurysm at 4cm, severe emphysema and persistent cavitary mass left apex with decreased soft tissue component. Patient was not having significant wheezing but does have significant decreased air movement.? He was placed on Decadron IV daily and Remdesivir. He was able to be weaned to room air. He completed 5 days of Remdesivir. Patient is confused and unable to understand the need to abstain from tobacco use. Uncertain if the confusion is due to acute infection or component of underlying dementia not previously diagnosed. 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 B12, folate and TSH levels normal. Called family but no answer. 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 Patient had normal B12 and folic acid levels.? Iron studies in February consistent with iron deficiency anemia.? He was started on ferrous sulfate. Methylmalonic acid level is elevated but of unclear significance but B12 added. The patient does have some mild hyponatremia noted on labs.? The patient did receive 30 mL/kilos bolus in the ER and IV fluids were continued on arrival to the floor.? IVF stopped but developed DEBRA off IVF. He is eating sporadically. Renal function improved and remained stable off IV fluids. He was encouraged to eat. Patient overall did well and was able to be discharged to SNF on 09/04/23 Status at Discharge Cognitive/behavioral status at discharge: Stable Time Spent with Patient Time attestation: Total time spent providing and/or coordinating discharge services: 35 minutes Time spent: Greater than 30 minutes Exam Narrative: AF 97.6 149/94 77 18 98% ra Gen - NARD Chest -distant but clear breath sounds with a few end expiratory wheezes appreciated anteriorly. CV - RRR S1/S2 Abd - Soft, NT/ND, Positive BS Ext - No pedal edema Neuro - Alert, oriented to name and location. Psych - Nml mood and affect Skin - Warm and dry DS: Data Data Completed and Pending Labs on day of discharge: Labs from last 24 hours 09/04/23 04:53 Sodium 132 L Potassium 4.6 Chloride 100 Carbon Dioxide 27 Anion Gap 5 L BUN 22 H Creatinine 1.00 Estim Creat Clear Calc 42 Estimated GFR > 60 Glucose 118 H Calc
[2023-09-04 13:02] VITALS: BP 149/91; PULSE 85; RESP 16; TEMP 35.8; O2SAT 94
[2023-09-04] MEDS: CALCIUM CARBONATE (TUMS) 500 MG (200 MG ELEMENTAL) PO (14:11)
== END 2023-09-04 15:40 | DRG 178 ==
LOC: ANHED 16:42 → ANH2MED 23:24
PROVIDERS: Internal Medicine; Student in an Organized Health Care Education/Training Program; Admitting Provider Internal Medicine; Emergency Provider Student in an Organized Health Care Education/Training Program; PCP Family Medicine; Visit Provider Internal Medicine
DX: U07.1 COVID-19 (principal); E87.1 Hypo-osmolality and hyponatremia; I69.351 Hemiplegia and hemiparesis following cerebral infarction affecting right dominant side; N17.9 Acute kidney failure, unspecified; J43.9 Emphysema, unspecified; D53.1 Other megaloblastic anemias, not elsewhere classified; F17.210 Nicotine dependence, cigarettes, uncomplicated; H40.1113 Primary open-angle glaucoma, right eye, severe stage; H40.9 Unspecified glaucoma; L89.212 Pressure ulcer of right hip, stage 2; R41.0 Disorientation, unspecified; Z98.41 Cataract extraction status, right eye; Z98.42 Cataract extraction status, left eye; Z96.1 Presence of intraocular lens
CPT/HCPCS: 36415; 70450; 71045; 71046; 71275; 80048; 80053; 80069; 80076; 81001; 82607; 82728; 82746; 83605; 83880; 83921; 84443; 85025; 85027; 85380; 85610; 85730; 86140; 87040; 87634; 87636; 93005; 94640; 96360; 96361; 97110; 97161; 97165; 97530; 97535; 99285; A9270; J0248; J1100; J7030; J7120; J8540; Q9967

== ENCOUNTER 2023-09-12 16:39 | Emergency (ER) | payer MEDICARE, SELFPAY ==
[2023-09-12] VITALS (34 sets, daily range): BP systolic 100–140; BP diastolic 79–101; PULSE 98–122; RESP 18–37; TEMP 37.2; O2SAT 70–100
--- NOTE | ~2023-09-12 | XR_ITS ---
EXAMINATION: XR chest 1V portable DATE: 09/12/2023 17:30 INDICATION: Respiratory distress. Recent COVID. TECHNIQUE: frontal view of the chest was obtained. COMPARISON: Chest radiograph dated 09/02/[address] dated 08/30/2023 FINDINGS: Hyperexpansion of lungs with regions of increased lucency and architectural distortion consistent wit h emphysema. Stable appearance of linear and bandlike atelectasis/scarring with some localized volume loss at the left upper lung zone. Additional less prominent mild streaky pleural parenchymal scarrin g at the right apex. New small region of patchy airspace opacity right midlung zone a new mild opacit ies at the right lung base. No pleural effusion or pneumothorax. Heart size is normal. IMPRESSION: 1. New opacities in the right mid lung zone at the right lung base which could represent atelectasis or pneumonia. 2. Emphysema with stable appearance of chronic atelectasis/scarring at the right apex and more promin ently in the left upper lung zone. Reviewed, dictated and finalized at location A. [facility] IMPRESSION: 1. New opacities in the right mid lung zone at the right lung base which could represent atelectasis or pneumonia. 2. Emphysema with stable appearance of chronic atelectasis/scarring at the righ t apex and more prominently in the left upper lung zone.
--- NOTE | 2023-09-12 16:49 | ECG_ITS ---
Measurements Intervals [place] Rate: 117 P: 90 VT: 131 QRS: 96 QRSD: 107 T: 81 QT: 303 QTc: 423 Interpretive Statements SINUS TACHYCARDIA WITH OCCASIONAL SUPRAVENTRICULAR PREMATURE COMPLEXES RIGHT ATRIAL ENLARGEMENT [0.3mV P-WAVE] RIGHT BUNDLE BRANCH BLOCK [120+ ms QRS DURATION, UPRIGHT V1, 40+ ms S IN I/aVL/V4/V5/V6] ABNORMAL ECG COMPARED TO ECG 08/30/2023 18:24:57 NO SIGNIFICANT CHANGES Electronically Signed On 09-13-2023 7:46:13 [employer] by Ulisses Briones M.D.
[2023-09-12] MEDS: IPRATROPIUM 0.5 MG/ALBUTEROL SULFATE 2.5 MG AMPUL.NEB 3 ML INHALATION (17:25)
[2023-09-12 17:28] LABS: Basophils Absolute Auto 0.02 K/mm3 (0.00-0.10); Basophils Percent Auto 0.1 % (0.0-1.0); Hematocrit 43.4 % (37.0-46.0); Hemoglobin 14.4 g/dL (12.4-15.3); Immature Granulocyte Absolute 0.14 K/mm3 (0.00-0.00); Immature Granulocyte Percent A 0.7 % (0.0-0.0); Lymphocytes Absolute Auto 0.62 K/mm3 (1.10-4.50); Lymphocytes Percent Auto 3.2 % (18.0-42.0); Mean Corpuscular HGB Conc 33.2 g/dL (32.0-36.0); Mean Corpuscular Hemoglobin 34.4 pg (27.0-31.0); Mean Corpuscular Volume 103.6 fL (78.0-102.0); Mean Platelet Volume 11.9 fl (8.7-11.0); Monocytes Percent Auto 3.6 % (2.0-11.0); Neutrophils Absolute Auto 18.2 K/mm3 (1.7-7.2); Neutrophils Percent Auto 92.4 % (50.0-70.0); Nucleated Red Blood Cells Absolute Auto 0.02 K/mm3 (0.00-0.00); Nucleated Red Blood Cells Perc 0.1 % (0-0.0); Platelet Count Result 215 K/mm3 (150-420); Red Blood Count 4.19 M/mm3 (4.70-6.10); Red Cell Distribution Width 20.2 % (11.6-14.4); White Blood Count 19.6 K/mm3 (4.8-10.8)
[2023-09-12 17:41] LABS: Partial Thromboplastin Time 33.4 SEC (23.90-30.70); Prothrombin Time 10.6 Seconds (9.50-12.10)
[2023-09-12 17:42] LABS: D Dimer 2.66 mg/L (0.19-0.50)
--- NOTE | 2023-09-12 17:48 | ED.SOB ---
HPI - SOB/Dyspnea General Chief Complaint: Shortness of Breath/Dyspnea Stated Complaint: short of breath Time Seen by Provider: 09/12/23 16:46 Source: patient Mode of arrival: ambulatory Limitations: no limitations History of Present Illness HPI Narrative: Patient is an 82-year-old male with significant past medical history that presents today with dyspnea. Patient has had dyspnea, cough, congestion, and a refill last week. He was COVID positive a week and half ago. Is been slowly getting worse. He is A&O x1. He is a poor historian and can only answer yes or no. He is brought in by EMS from group home. Has shortness of breath and a cough. He has not been treated with anything prior to arrival. MD elicited complaint: shortness of breath Pertinent past history: COPD, congestive heart failure and pneumonia Onset (ago): day(s) Context: recent illness Timing: constant Severity: mild Exacerbating factors: nothing Relieving factors: nothing Known history of: COPD Associated symptoms: denies other symptoms Treatment prior to arrival: none Related Data Home oxygen amount: none Allergies Allergy/AdvReac Type Severity Reaction Status Date / Time No Known Allergies Allergy Verified 08/31/23 00:16 Review of Systems Review of Systems: All systems reviewed & are unremarkable except as noted in HPI and below Constitutional: Constitutional: Reports as per HPI Eyes: Eyes: Reports no additional eye complaints ENT: Reports system reviewed and no additional complaints, except as documented Cardiovascular: Cardiovascular: Reports no additional cardiovascular complaints Respiratory: Respiratory: Reports as per HPI, Reports cough, Reports dyspnea and Reports wheezing Gastrointestinal: Gastrointestinal: Reports no additional gastrointestinal complaints Genitourinary: Genitourinary: Reports no additional male genitourinary complaints Musculoskeletal: Musculoskeletal: Reports no additional musculoskeletal complaints Integumentary/Breasts: Skin/Breast: Reports system reviewed and no additional complaints, except as docu Neurologic: Reports system reviewed and no additional complaints, except as documented Psychiatric: Psychiatric: Reports no additional psychiatric complaints Endocrine: Endocrine: Reports no additional endocrine complaints Hematologic/Lymphatic: Hematologic/Lymphatic: Reports no additional hematologic/lymphatic complaints PMFSH Past Medical History Medical History COPD with asthma Depression 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 Primary open angle glaucoma of right eye, severe stage Smoker Surgical History Surgical History H/O shoulder surgery History of elbow surgery Status post cataract extraction of both eyes with insertion of intraocular lens Family History Family History Grandparent No problems noted. Mother Lung cancer Father Cancer of kidney Social History Social History Social History: Surrogate medical decision maker: Marcio Rodashermesrobbie, brother. Code status: Full code. Smoking packs per day: 0.5 Smoking cigarettes per day: 10.0 Years smoked: 77 Smoking pack-years: 38.50 Smoking status: Current every day smoker Tobacco type: cigarettes Second hand tobacco smoke exposure: Yes Alcohol intake: never Substance use: never Substance use type: does not use Lack of Transportation: YES Lack of Food: Never True Current Housing: I Have Housing Concerned About Future Housing: No Difficulty Paying Gas/Electric Bills: No Difficulty Paying for Meds: No Currently Unemployed: No Education: Grade School Difficulty w/ Childcare or Family Care: No Additional living arrangements comments: The patient lives in his own home in [place]. Additional occupation/education
[2023-09-12 17:53] LABS: Alanine Aminotransferase 29 U/L (16-63); Albumin Level 2.9 g/dL (3.4-5.0); Alkaline Phosphatase 72 U/L (46-116); Anion Gap 12 mmol/L (8-16); Aspartate Amino Transferase 34 U/L (15-37); Bilirubin,Total 0.8 mg/dL (0.00-1.00); Blood Urea Nitrogen 113 mg/dL (7-18); Calcium 8.8 mg/dL (8.5-10.1); Carbon Dioxide 21 mmol/L (21-32); Chloride 104 mmol/L (98-108); Estimated CRCL calculation 9 ml/min; Estimated Glomerular Filt Rate 16; Glucose 110 mg/dL (70-99); NT Pro B Type Natriuretic Pept 2993 pg/mL (0-450); Osmolality Calculated 320 mOsm/kg (285-295); Potassium 4.9 mmol/L (3.5-5.1); Sodium 137 mmol/L (136-145); Total Protein 7.3 g/dL (6.4-8.2)
--- NOTE | 2023-09-12 18:06 | PC.NURSE ---
Lab reports elevated Troponin of 165.6. Erp made aware.
[2023-09-12 18:07] LABS: Troponin I 165.6 ng/L (0.00-60.4)
[2023-09-12 18:11] LABS: Appearance Urine Clear (Clear); Bilirubin Urine Negative (Negative); Blood Urine 1+ (Negative); Color Urine Yellow (Yellow); Glucose Urine UA Negative (Negative); Ketones Urine Negative (Negative); Leukocyte Esterase Ur Negative LEU/UL (Negative); Nitrate Urine Negative (Negative); Protein Urine 1+ (Negative); Urobilinogen Urine 0.2 mg/dL (0.2-1.0); pH Urine 5.5 (5.0-8.0)
--- NOTE | 2023-09-12 18:19 | PC.NURSE ---
Per Cassie at [facility], patient has no family or emergency contacts listed. Made aware that patient will need to be transferred, she states just let them know where and they will help facilitate getting patient back when he gets discharged.
[2023-09-12 18:23] LABS: Add Urine Microscopic? YES; Bacteria Urine 2+ /hpf; Squamous Epithelial Cell Urine None seen /hpf (Few); WBC Urine 0-3 /hpf (0-3)
[2023-09-12] MEDS: SODIUM CHLORIDE 0.9% IV 1,000 ML 999 ML IV CONT (18:25)
--- NOTE | 2023-09-12 19:20 | PC.NURSE ---
Pt resting and is able to nod his head to answer simple questions. Awaiting call back from [facility] for pt transfer.
[2023-09-12] MEDS: cefTRIAXone 2 GM/NS 100 ML 2 GM/100 ML BAG IVPB (19:44)
[2023-09-12] MEDS: AZITHROMYCIN 500 MG/NS 250 ML 500 MG/250 ML BAG 250 MG IVPB (20:37)
== END 2023-09-12 21:35 | disposition short-term general hospital (02) ==
PROVIDERS: Emergency Provider Family Medicine; PCP Family Medicine
DX: J18.9 Pneumonia, unspecified organism (principal); R53.81 Other malaise; J44.9 Chronic obstructive pulmonary disease, unspecified; I50.9 Heart failure, unspecified; F17.210 Nicotine dependence, cigarettes, uncomplicated; Z86.73 Personal history of transient ischemic attack (TIA), and cerebral infarction without residual deficits
CPT/HCPCS: 36415; 71045; 80053; 81001; 83880; 84484; 85025; 85380; 85610; 85730; 87040; 93005; 94640; 96361; 96365; 96367; 99285; J0456; J0696; J7030